=== PATIENT | female | born 1945 | race Asian ===

== ENCOUNTER → 2023-12-16 09:58 | Outpatient (REF) | payer MEDICARE, BC, SELFPAY ==
[2023-12-16 12:31] LABS: ALT (SGPT) 19 U/L (0-35); AST (SGOT) 24 U/L (14-36); Albumin 4.3 g/dl (3.5-5.0); Alkaline Phosphatase 65 U/L (38-126); Blood Urea Nitrogen 19 mg/dl (7-17); Calcium 10.4 mg/dl (8.4-10.2); Carbon Dioxide 28 mmol/L (22-30); Chloride 105 mmol/L (98-107); Glucose 92 mg/dl (70-99); Potassium 4.2 mmol/L (3.5-5.1); Sodium 134 mmol/L (135-145); Total Bilirubin 0.4 mg/dl (0.2-1.3); Total Protein 7.3 g/dl (6.3-8.2); eGFR > 60.00
[2023-12-18 12:16] LABS: Intact PTH 140.5 pg/ml (13.6-85.8)
== END ==
LOC: HWLAB 09:58
PROVIDERS: ATTENDING PHYSICIAN Nurse Practitioner
DX: I10 Essential (primary) hypertension (principal); E34.9 Endocrine disorder, unspecified; E03.9 Hypothyroidism, unspecified
CPT/HCPCS: 36415; 80053; 83970; 84443

== ENCOUNTER → 2024-02-22 10:32 | Outpatient (REF) | payer MEDICARE, BC, SELFPAY ==
[2024-02-22 15:56] LABS: Erythrocyte Sed Rate 10 mm/hour (0-20)
[2024-02-22 16:17] LABS: Intact PTH 80.6 pg/ml (13.6-85.8)
[2024-02-22 16:31] LABS: C-Reactive Protein < 5.00 mg/L (0.0-10.00)
[2024-02-24 14:32] LABS: Rheumatoid Agglutinin Less Than 10 IU (<10 IU)
[2024-02-24 18:47] LABS: ds-DNA Ab, IgG Reflex To Titer 2 IU (0-24)
[2024-02-25 01:38] LABS: CCP Antibody IgG/IgA 55 Units (0-19)
[2024-02-25 02:16] LABS: ANA, IgG Reflex to HEp-2 None Detected (None Detected)
== END ==
LOC: HWLAB 10:32
PROVIDERS: ATTENDING PHYSICIAN Nurse Practitioner; REFERRING PHYSICIAN Internal Medicine Endocrinology, Diabetes & Metabolism
DX: E34.9 Endocrine disorder, unspecified (principal)
CPT/HCPCS: 36415; 83970; 85652; 86038; 86140; 86200; 86225; 86235; 86430

== ENCOUNTER → 2024-03-21 12:03 | Outpatient (REF) | payer OTHER, SELFPAY | LOC: RAD 12:03 | PROVIDERS: ATTENDING PHYSICIAN Nurse Practitioner Family | DX: Z13.9 Encounter for screening, unspecified (principal) | CPT/HCPCS: 71046 ==

== ENCOUNTER → 2024-06-01 08:30 | Outpatient (REF) | payer MEDICARE, BC, SELFPAY ==
[2024-06-01 10:18] LABS: Ionized Calcium 1.41 mMOL/L (1.15-1.33)
[2024-06-01 11:48] LABS: ALT (SGPT) 15 U/L (0-35); AST (SGOT) 20 U/L (14-36); Albumin 4.2 g/dl (3.5-5.0); Alkaline Phosphatase 47 U/L (38-126); Blood Urea Nitrogen 26 mg/dl (7-17); Calcium 10.8 mg/dl (8.4-10.2); Carbon Dioxide 28 mmol/L (22-30); Chloride 100 mmol/L (98-107); Glucose 98 mg/dl (70-99); Potassium 4.9 mmol/L (3.5-5.1); Sodium 140 mmol/L (135-145); Total Bilirubin 0.4 mg/dl (0.2-1.3); Total Protein 6.8 g/dl (6.3-8.2); eGFR 46.91
[2024-06-01 12:00] LABS: Vitamin D, 25-OH*** 104 ng/mL (30-80)
[2024-06-01 12:14] LABS: TSH 1.83 uIU/ml (0.47-4.68)
[2024-06-03 11:24] LABS: Intact PTH 71.1 pg/ml (13.6-85.8)
== END ==
LOC: RAD 08:30
PROVIDERS: ATTENDING PHYSICIAN Internal Medicine Endocrinology, Diabetes & Metabolism; FAMILY PHYSICIAN Nurse Practitioner
DX: M81.0 Age-related osteoporosis without current pathological fracture (principal); E83.52 Hypercalcemia; E21.0 Primary hyperparathyroidism; E04.2 Nontoxic multinodular goiter; E55.9 Vitamin D deficiency, unspecified
CPT/HCPCS: 36415; 78071; 80053; 82306; 82330; 83970; 84443; A9500

== ENCOUNTER → 2024-07-04 09:47 | Outpatient (REF) | payer MEDICARE, BC, SELFPAY | LOC: HWLAB 09:47 | PROVIDERS: ATTENDING PHYSICIAN Internal Medicine Gastroenterology | DX: R19.7 Diarrhea, unspecified (principal) | CPT/HCPCS: 83993 ==

== ENCOUNTER → 2024-07-14 10:27 | Outpatient (REF) | payer MEDICARE, BC, SELFPAY ==
[2024-07-14 11:44] LABS: Ionized Calcium 1.44 mMOL/L (1.15-1.33)
[2024-07-14 11:57] LABS: % Basophils 0.9 % (0-2); % Eosinophils 5.2 % (0-6); % Immature Granulocytes 0.2 % (0-0.5); % Lymphocytes 27.3 % (20.5-51.1); % Monocytes 6.2 % (1.7-9.3); % Neutrophils 60.2 % (42.2-75.2); Absolute Basophils 0.1 10^3/uL (0-0.2); Absolute Eosinophils 0.3 10^3/uL (0-0.7); Absolute Lymphocytes 1.5 10^3/uL (1.2-3.4); Absolute Monocytes 0.3 10^3/uL (0.1-0.6); Absolute Neutrophils 3.2 10^3/uL (1.4-6.5); Hematocrit 42.9 % (37.0-47.0); Hemoglobin 14.6 g/dL (12.0-16.0); Mean Corpuscular Hgb 31.4 pg (27.0-31.0); Mean Corpuscular Volume 92.3 fL (81.0-99.0); Mean Platelet Volume 10.2 fL (7.4-10.4); Nucleated Red Blood Cells % 0 %; Platelet Count 221 10^3/uL (130-400); Red Blood Cell Count 4.65 10^6/uL (4.20-5.40); Red Cell Dist. Width 13.2 % (11.5-14.5); White Blood Cell Count 5.3 10^3/uL (4.8-10.8)
[2024-07-14 12:11] LABS: ALT (SGPT) 21 U/L (0-35); AST (SGOT) 27 U/L (14-36); Albumin 4.5 g/dl (3.5-5.0); Alkaline Phosphatase 52 U/L (38-126); Blood Urea Nitrogen 26 mg/dl (7-17); Calcium 11.5 mg/dl (8.4-10.2); Carbon Dioxide 27 mmol/L (22-30); Chloride 102 mmol/L (98-107); Glucose 95 mg/dl (70-99); HDL Cholesterol 69 mg/dl; LDL Cholesterol, Calculated 114 mg/dl; Potassium 4.4 mmol/L (3.5-5.1); Sodium 140 mmol/L (135-145); Total Bilirubin 0.4 mg/dl (0.2-1.3); Total Cholesterol 209 mg/dl (50-199); Total Protein 7.2 g/dl (6.3-8.2); Triglyceride 133 mg/dl (10-149); Very Low Density Lipoprotein 26 mg/dl (0-30); eGFR 42.62
[2024-07-14 13:06] LABS: Vitamin D, 25-OH*** 113 ng/mL (30-80)
== END ==
LOC: HWRAD 10:27
PROVIDERS: ATTENDING PHYSICIAN Physical Medicine & Rehabilitation; REFERRING PHYSICIAN Internal Medicine Endocrinology, Diabetes & Metabolism
DX: M81.0 Age-related osteoporosis without current pathological fracture (principal); E04.2 Nontoxic multinodular goiter; E21.0 Primary hyperparathyroidism; E55.9 Vitamin D deficiency, unspecified; M75.01 Adhesive capsulitis of right shoulder; I10 Essential (primary) hypertension
CPT/HCPCS: 36415; 73030; 77080; 80053; 80061; 82306; 82330; 83970; 85025

== ENCOUNTER → 2024-08-02 07:57 | Day surgery (SDC) | payer MEDICARE, BC, SELFPAY ==
[2024-08-02 09:14] LABS: APTT 29.5 Sec (23.4-35.0); INR 0.95; PT 13.1 Sec (11.4-14.6)
== END ==
LOC: SDSPAT 07:57
PROVIDERS: ATTENDING PHYSICIAN Surgery
DX: Z01.812 Encounter for preprocedural laboratory examination (principal)
CPT/HCPCS: 85610; 36415; 85730

== ENCOUNTER 2024-08-08 06:34 | Day surgery (SDC) | payer MEDICARE, BC, SELFPAY ==
--- NOTE | 2024-07-25 16:47 | PTCARENOTE ---
abnormal Creat 1.3, GFR 42.[address] Ascencio's office.
--- NOTE | 2024-07-26 14:50 | PTCARENOTE ---
Abn ECG, Dr. Quarles notified, no new actions required.
[2024-08-02 12:40] VITALS: BMI 25.4
[2024-08-08] VITALS (9 sets, daily range): BP systolic 129–161; BP diastolic 64–77; BMI 25.4
[2024-08-08] MEDS: TYLENOL 1000 MG PO (11:40)
[2024-08-08] MEDS: HEPARIN 5000 UNITS SC (11:41)
[2024-08-08] MEDS: NORMOSOL-R/PLASMALYTE-A 1000 IV (11:41)
[2024-08-08] MEDS: NEURONTIN 300 MG PO (11:41)
[2024-08-08 13:40] LABS: Turbo PTH 104.3 pg/ml (13.6-85.8)
[2024-08-08 14:56] LABS: Turbo PTH 114 pg/ml (13.6-85.8)
--- NOTE | 2024-08-08 15:14 | OR.RPT ---
Operative Report
Operative Report
Date of Operation: August 08, 2024
Preoperative Diagnosis: �Recurrent hyperparathyroidism - E210
Postoperative Diagnosis: Same
Surgeon: Rolando Ascencio M.D.
Operation: Neck re-exploration, resection of the right and left inferior parathyroidectomy - 13455
Anesthesia: GET
Estimated Blood Loss: 3 cc
Drains: None
Specimen: �right and left inferior neck nodules, rule out parathyroid adenomas
Complications: �None
Procedure:
The patient was taken to the operating room and placed in the usual supine position. After adequate general endotracheal anesthesia was established, the patient's neck was extended, prepped, and draped in the typical sterile fashion. The old skin
incision was reopened with the #15 blade, and this was taken through the skin into the subcutaneous tissue. The underlying platysma muscle was divided, and subplatysmal flaps were created superiorly to the thyroid cartilage and inferiorly to the
sternal notch. Strap muscles were identified and at the midline.
Attention was turned to the patient's right side of the neck. Significant scar tissue was noted, which was taken down cautious. The right thyroid lobe was mobilized medially. During this process, the right recurrent laryngeal nerve was identified
and preserved throughout the surgery. The right lower neck nodule was identified and noted to be enlarged, excised, and sent to the pathology department, which showed a hypercellular parathyroid gland.
The attention was turned to the left side of the neck. The left thyroid lobe was mobilized medially. During this process, the left recurrent laryngeal nerve was identified and preserved throughout the surgery. The left lower neck nodule was
identified and noted to be enlarged, excised, and sent to the pathology department, which showed a hypercellular parathyroid gland. The normal-appearing left superior parathyroid gland was identified and preserved.
After obtaining adequate hemostasis, the strap muscles were reapproximated with #3-0 Vicryl in a running fashion. The platysma muscle was reapproximated with #3-0 Vicryl in an interrupted fashion, and the skin was approximated with #4-0 Monocryl in
a running subcuticular fashion. The Steri-Strips and sterile dressings were placed. The patient tolerated the procedure well. The final instrument, needle, and sponge counts were correct. The patient was extubated and transferred to the PACU.
[2024-08-08] MEDS: SUBLIMAZE 25 MCG IV (15:15)
[2024-08-08 16:04] LABS: Turbo PTH 14.7 pg/ml (13.6-85.8)
== END 2024-08-08 17:49 | disposition home or self-care (01) ==
LOC: SDS 06:34
PROVIDERS: ATTENDING PHYSICIAN Surgery
DX: E21.0 Primary hyperparathyroidism (principal)
CPT/HCPCS: 60502; 88305; 88307; 88332; 83970; 88331; C1776

== ENCOUNTER → 2024-08-10 15:08 | Emergency (ER) | payer MEDICARE, BC, SELFPAY ==
[2024-08-10 15:11] VITALS: BP 135/88
[2024-08-10 15:35] LABS: % Basophils 0.5 % (0-2); % Eosinophils 2.1 % (0-6); % Immature Granulocytes 0.2 % (0-0.5); % Lymphocytes 23.4 % (20.5-51.1); % Monocytes 5.6 % (1.7-9.3); % Neutrophils 68.2 % (42.2-75.2); Absolute Eosinophils 0.2 10^3/uL (0-0.7); Absolute Monocytes 0.5 10^3/uL (0.1-0.6); Absolute Neutrophils 5.8 10^3/uL (1.4-6.5); Hematocrit 44.5 % (37.0-47.0); Hemoglobin 14.6 g/dL (12.0-16.0); Mean Corp Hgb Conc. 32.8 g/dL (33.0-37.0); Mean Corpuscular Hgb 30.8 pg (27.0-31.0); Mean Corpuscular Volume 93.9 fL (81.0-99.0); Mean Platelet Volume 9.9 fL (7.4-10.4); Nucleated Red Blood Cells % 0 %; Platelet Count 247 10^3/uL (130-400); Red Blood Cell Count 4.74 10^6/uL (4.20-5.40); Red Cell Dist. Width 12.8 % (11.5-14.5); White Blood Cell Count 8.5 10^3/uL (4.8-10.8)
[2024-08-10 15:46] VITALS: BP 111/73
[2024-08-10 15:51] LABS: ALT (SGPT) 17 U/L (0-35); AST (SGOT) 28 U/L (14-36); Albumin 4.3 g/dl (3.5-5.0); Alkaline Phosphatase 45 U/L (38-126); Blood Urea Nitrogen 22 mg/dl (7-17); Carbon Dioxide 27 mmol/L (22-30); Chloride 101 mmol/L (98-107); Glucose 145 mg/dl (70-99); Sodium 140 mmol/L (135-145); Total Bilirubin 0.6 mg/dl (0.2-1.3); Total Protein 7.2 g/dl (6.3-8.2); eGFR 52.08
[2024-08-10 15:59] LABS: Troponin I 0.015 ng/ml
[2024-08-10 16:00] VITALS: BP 101/66
[2024-08-10 16:06] LABS: Magnesium 1.4 mg/dl (1.6-2.3)
--- NOTE | 2024-08-10 16:24 | ED.GENMED ---
History of Present Illness
General
Chief Complaint: Chest Pain
Source: patient and records
Exam Limitations: none
Time Seen by Provider: 08/10/24 16:00
Nursing documentation reviewed up to this point in time: agreed with
History of Present Illness
History of Present Illness:
78-year-old female presents with palpitations onset earlier this morning some fluttering in her chest no chest pain or shortness of breath this correction from the nurses note, status post parathyroid removed [address] Ascencio, sees
Evelyn never had A-fib before, also seen Dr. Wheeler internet e commerce specialist no fever or chills no bleeding from the wound
Past History
Past History
ED Past Medical History: Hypothyroidism; Negative Arrthythmia
ED Past Surgical History: Other (Parathyroid surgery)
Social History
Tobacco: Non-smoker
Alcohol: None
Drug: None
Living: with family
Employment: Retired
Review of Systems
Review of Systems
All Other Systems: Not applicable
Constitutional: Reports no symptoms; Denies fever or fatigue
EENT: Reports no symptoms
Respiratory: Reports no symptoms
Cardiac: Reports palpitations
ABD/GI: Reports no symptoms
: Reports no symptoms
Neurological: Reports no symptoms
Endocrine: Reports no symptoms
Phy Exam
Physical Exam
Physical Exam:
Physical Exam
General: no apparent distress, not acutely ill
Neck: Surgical wound Steri-Strips intact no obvious bleeding no stridor normal voice
Heart: Irregular
Lungs: no acute respiratory distress. clear bilaterally
Neuro: alert and oriented. no focal neurological deficits
Skin: no rash
Psychiatric: well kept. interactive and cooperative
Extremities: no edema.
Scores
[id number] Score for Afib Stroke Risk
Age in Years (65=0, 65-74=1, >/=75=2): > or = 75
Sex (Female=+1): Female
Congestive Heart Failure History (Yes=+1): No
Hypertension History (Yes=+1): Yes
Stroke/TIA/Thromboembolism History (Yes=+2): No
Vascular Disease History (Yes=+1): No
Diabetes Mellitus (Yes=+1): No
Score: 4
Anticoagulation Recommendations: Recommend anticoagulation (as validated in nonvalvular fib)
Heart Score for Chest Pain Patients
STEMI patient?: No
History: Slightly or Non-Suspicious
ECG: Nonspecific Repolarization
Age: >/= 65 years
Risk Factors: 1 or 2 Risk Factors
Troponin: </= Normal Limit
Heart Score for Chest Pain Patients: 4
Heart Score Risk: 20.3% MACE over next 6 weeks
Course
Orders/Labs/Results
Orders:
Orders
08/10/24 15:09
EKG [Electrocardiogram (*1)] Urgent
Reason for Study: Chest Pain
EKG- Treatment ONCE
08/10/24 15:24
Complete Blood Count/With Diff Urgent
Comprehensive Metabolic Panel Urgent
Magnesium Urgent
Comment: ADD ON
TSH Reflex To Free T4 Urgent
Troponin I Urgent
08/10/24 15:48
Add On- LAB Urgent
Tests Added?: Magnesium, ionized calcium
08/10/24 16:19
Magnesium Sulfate 1 grams 0.9% Sodium Chloride 100 ml [Nss] 100 ml IV NOW
08/10/24 18:25
Apixaban [Eliquis] 5 mg PO NOW STA
Abnormal Lab Results
08/10/24
15:24
MCHC 32.8 L g/dL
(33.0-37.0)
BUN 22 H mg/dl
(7-17)
Creatinine 1.1 H mg/dL
(0.6-1.0)
Glucose 145 H mg/dl
(70-99)
Magnesium 1.4 L mg/dl
(1.6-2.3)
08/10/24 15:24
08/10/24 15:24
Vital Signs
Initial and Last Documented VS:
Initial Vital Signs
Temp Pulse Resp BP Pulse Ox
98.2 F 108 18 135/88 100
08/10/24 15:11 08/10/24 15:11 08/10/24 15:11 08/10/24 15:11 08/10/24 15:11
Last Documented Vital Signs
Temp Pulse Resp BP Pulse Ox
98.2 F 93 21 111/73 98
08/10/24 15:11 08/10/24 15:48 08/10/24 15:48 08/10/24 15:46 08/10/24 15:48
MDM/Problems Addressed
Differential Diagnosis Includes:
A-fib atrial tach palpitations PVCs
MDM/Problems Addressed:
Palpitation
Chronic conditions affecting care:
Thyroid hypertension hypothyroid
Acute Exacerbation and/or Progression of Chronic Illness:
Thyroid hypertension hypothyroid
*Critical Care Note
Total Time (30-74mins, 75-104mins- exclusive of procedures): 15
Update Note
Update Note:
Update patient is in a rate controlled A-fib labs are noted will replete her potassium message sent to her outpatient physicians
Reviewed with her outpatient health and safety director and surgeon okay to start anticoagulation will plan on a conservative treatment plan at this time, have her follow-up with an EKG next week ER if worsening symptoms
Update patient remains in A-fib controlled rate clearly instructed to return to the ER if worsening cardiac symptoms and/or bleeding
ED Attending Note
-
Portions of this chart may have been created with voice recognition software.� Occasional wrong word or��sound alike� substitutions may have occurred due to the inherent limitations of voice recognition software.
Discharge Plan
Departure
Patient Disposition: Home (Routine Discharge)
Date of Disposition: 08/10/24
Time of Disposition: 18:28
Patient with high blood pressure during this ER visit?: No
Condition: Good
Discharge Problem:
Atrial fibrillation, new onset
Instructions: Atrial fibrillation and atrial flutter - ED discharge instructions
Prescriptions:
New
Eliquis 5 mg tablet
5 mg PO BID Qty: 60 0RF
magnesium oxide 500 mg magnesium tablet
500 mg PO DAILY Qty: 10 0RF
No Action
ascorbic acid (vitamin C) [Vitamin C] 1,000 mg Tablet
1 g PO DAILY
levothyroxine [Synthroid] 50 mcg Tablet
50 mcg PO DAILY
Patient Comments:
50MCG
zinc acetate 50 mg (zinc) Capsule
50 mg PO DAILY
losartan 100 mg Tablet
100 mg PO DAILY
spironolactone 50 mg Tablet
50 mg PO QPM
diclofenac sodium [Arthritis Pain (diclofenac)] 1 % Gel
1 ea TOPICAL DAILYPRN PRN (Reason: back, knees, shoulders)
Patient Comments:
right shoulder
nebivolol [Bystolic] 10 mg Tablet
10 mg PO QPM
Prolia 60 mg/mL Syringe
60 mg SC [id number]
Rx Instructions:
Next dose due 08/15/2024
turmeric 400 mg Capsule
1,000 mg PO DAILY
aspirin 81 mg Tablet,Delayed Release (Dr/Ec)
81 mg PO DAILY
Metamucil 3.4 gram/5.4 gram Powder
2 tbsp PO BID
gabapentin 100 mg capsule
100 mg PO DAILY
gabapentin 100 mg capsule
300 mg PO QPM
ipratropium bromide 21 mcg (0.03 %) spray,non-aerosol
2 spray INTRANASAL BID
Referrals:
Archie Radford CRNP [Family Provider] -
Luari Rivas MD [Active] - Follow up in 5-7 days
Activity Restrictions/Additional Instructions:
Start Eliquis twice a day
Return to the ER for any bleeding any trauma swelling from your neck wound or any problems swallowing
Return to the ER for chest pain, shortness of breath you feel you are going to pass out fast or slow heart rates
Interventions
Interventions:
*Risk Screen - Suicide Last Done: 08/10/24 15:11
*General Assessment Last Done: 08/10/24 15:11
*Neglect/Abuse Screening Last Done: 08/10/24 15:11
*ED COVID-19 Vaccine History Last Done: 08/10/24 15:11
Discharge Date and Time
Print Language: ERITREAN
[2024-08-10 16:47] LABS: TSH Reflex To Free T4 0.48 uIU/ml (0.47-4.68)
[2024-08-10 17:00] VITALS: BP 101/61
[2024-08-10] MEDS: MAGNESIUM SULFATE 102 GRAMS IV (17:01)
[2024-08-10 18:00] VITALS: BP 115/71
[2024-08-10] MEDS: ELIQUIS 5 MG PO (18:55)
== END | disposition home or self-care (01) ==
LOC: EMR 15:08
PROVIDERS: Emergency Medicine; EMERGENCY PHYSICIAN Emergency Medicine
DX: I48.91 Unspecified atrial fibrillation (principal); E03.9 Hypothyroidism, unspecified; I10 Essential (primary) hypertension
CPT/HCPCS: 99283; 96365; 80053; 83735; 84443; 84484; 85025; 93005

== ENCOUNTER → 2024-08-18 13:33 | Outpatient (REF) | payer MEDICARE, BC, SELFPAY ==
[2024-08-18 16:32] LABS: ALT (SGPT) 17 U/L (0-35); AST (SGOT) 20 U/L (14-36); Albumin 4.2 g/dl (3.5-5.0); Alkaline Phosphatase 55 U/L (38-126); Blood Urea Nitrogen 34 mg/dl (7-17); Calcium 10.9 mg/dl (8.4-10.2); Carbon Dioxide 30 mmol/L (22-30); Chloride 100 mmol/L (98-107); Glucose 112 mg/dl (70-99); Potassium 4.1 mmol/L (3.5-5.1); Sodium 139 mmol/L (135-145); Total Bilirubin 0.4 mg/dl (0.2-1.3); Total Protein 6.8 g/dl (6.3-8.2); eGFR 38.99
[2024-08-19 09:57] LABS: Intact PTH < 3.4 pg/ml (13.6-85.8)
== END ==
LOC: HWLAB 13:33
PROVIDERS: ATTENDING PHYSICIAN Surgery
DX: E21.0 Primary hyperparathyroidism (principal)
CPT/HCPCS: 36415; 80053; 83970

== ENCOUNTER → 2024-08-22 10:00 | Outpatient (REF) | payer MEDICARE, BC, SELFPAY | LOC: HWRCS 10:00 | PROVIDERS: ATTENDING PHYSICIAN Student in an Organized Health Care Education/Training Program | DX: I48.91 Unspecified atrial fibrillation (principal) | CPT/HCPCS: 93306 ==

== ENCOUNTER → 2024-08-25 12:27 | Outpatient (REF) | payer MEDICARE, BC, SELFPAY ==
[2024-08-25 15:33] LABS: ALT (SGPT) 21 U/L (0-35); AST (SGOT) 25 U/L (14-36); Albumin 4.4 g/dl (3.5-5.0); Alkaline Phosphatase 48 U/L (38-126); Blood Urea Nitrogen 19 mg/dl (7-17); Carbon Dioxide 23 mmol/L (22-30); Chloride 99 mmol/L (98-107); Glucose 138 mg/dl (70-99); Potassium 4.1 mmol/L (3.5-5.1); Sodium 136 mmol/L (135-145); Total Bilirubin 0.4 mg/dl (0.2-1.3); Total Protein 7.3 g/dl (6.3-8.2); eGFR 42.35
[2024-08-26 09:33] LABS: Intact PTH 6.4 pg/ml (13.6-85.8)
== END ==
LOC: HWLAB 12:27
PROVIDERS: ATTENDING PHYSICIAN Surgery
DX: E21.0 Primary hyperparathyroidism (principal)
CPT/HCPCS: 36415; 80053; 83970

== ENCOUNTER → 2024-08-29 10:19 | Outpatient (REF) | payer MEDICARE, BC, SELFPAY | LOC: RCS 10:19 | PROVIDERS: ATTENDING PHYSICIAN Student in an Organized Health Care Education/Training Program | DX: I48.91 Unspecified atrial fibrillation (principal) | CPT/HCPCS: 93225; 93226 ==

== ENCOUNTER → 2024-09-01 13:39 | Outpatient (REF) | payer MEDICARE, BC, SELFPAY ==
[2024-09-01 17:14] LABS: ALT (SGPT) 33 U/L (0-35); AST (SGOT) 31 U/L (14-36); Albumin 4.3 g/dl (3.5-5.0); Alkaline Phosphatase 53 U/L (38-126); Blood Urea Nitrogen 21 mg/dl (7-17); Calcium 9.2 mg/dl (8.4-10.2); Carbon Dioxide 27 mmol/L (22-30); Chloride 98 mmol/L (98-107); Glucose 143 mg/dl (70-99); Potassium 4.4 mmol/L (3.5-5.1); Sodium 136 mmol/L (135-145); Total Bilirubin 0.4 mg/dl (0.2-1.3); Total Protein 7.2 g/dl (6.3-8.2); eGFR 42.35
[2024-09-01 17:26] LABS: Intact PTH 4.9 pg/ml (13.6-85.8)
== END ==
LOC: HWLAB 13:39
PROVIDERS: ATTENDING PHYSICIAN Surgery
DX: E21.0 Primary hyperparathyroidism (principal)
CPT/HCPCS: 36415; 80053; 83970

== ENCOUNTER → 2024-09-05 15:05 | Outpatient (REF) | payer MEDICARE, BC, SELFPAY | LOC: HWRAD 15:05 | PROVIDERS: ATTENDING PHYSICIAN Nurse Practitioner Family | DX: R05.9 Cough, unspecified (principal) | CPT/HCPCS: 71046 ==

== ENCOUNTER → 2024-09-20 13:29 | Outpatient (REF) | payer MEDICARE, BC, SELFPAY ==
[2024-09-20 16:26] LABS: ALT (SGPT) 13 U/L (0-35); AST (SGOT) 18 U/L (14-36); Alkaline Phosphatase 48 U/L (38-126); Blood Urea Nitrogen 26 mg/dl (7-17); Calcium 8.6 mg/dl (8.4-10.2); Carbon Dioxide 25 mmol/L (22-30); Chloride 100 mmol/L (98-107); Glucose 106 mg/dl (70-99); Potassium 4.3 mmol/L (3.5-5.1); Sodium 137 mmol/L (135-145); eGFR 46.62
[2024-09-20 16:36] LABS: Total Bilirubin 0.2 mg/dl (0.2-1.3)
[2024-09-23 09:49] LABS: Intact PTH 6.8 pg/ml (13.6-85.8)
== END ==
LOC: HWLAB 13:29
PROVIDERS: ATTENDING PHYSICIAN Surgery
DX: E21.0 Primary hyperparathyroidism (principal)
CPT/HCPCS: 36415; 80053; 83970

== ENCOUNTER → 2024-10-19 15:02 | Outpatient (REF) | payer MEDICARE, BC, SELFPAY ==
[2024-10-19 16:03] LABS: % Basophils 1.1 % (0-2); % Eosinophils 4.8 % (0-6); % Immature Granulocytes 0.7 % (0-0.5); % Lymphocytes 24.6 % (20.5-51.1); % Monocytes 7.8 % (1.7-9.3); Absolute Basophils 0.1 10^3/uL (0-0.2); Absolute Eosinophils 0.2 10^3/uL (0-0.7); Absolute Lymphocytes 1.1 10^3/uL (1.2-3.4); Absolute Monocytes 0.4 10^3/uL (0.1-0.6); Absolute Neutrophils 2.8 10^3/uL (1.4-6.5); Hematocrit 40.7 % (37.0-47.0); Hemoglobin 13.4 g/dL (12.0-16.0); Mean Corp Hgb Conc. 32.9 g/dL (33.0-37.0); Mean Corpuscular Hgb 30.5 pg (27.0-31.0); Mean Corpuscular Volume 92.7 fL (81.0-99.0); Mean Platelet Volume 9.6 fL (7.4-10.4); Nucleated Red Blood Cells % 0 %; Platelet Count 269 10^3/uL (130-400); Red Blood Cell Count 4.39 10^6/uL (4.20-5.40); Red Cell Dist. Width 13.2 % (11.5-14.5); White Blood Cell Count 4.6 10^3/uL (4.8-10.8)
[2024-10-19 16:17] LABS: ALT (SGPT) 15 U/L (0-35); AST (SGOT) 20 U/L (14-36); Albumin 4.5 g/dl (3.5-5.0); Alkaline Phosphatase 49 U/L (38-126); Blood Urea Nitrogen 21 mg/dl (7-17); Calcium 9.4 mg/dl (8.4-10.2); Carbon Dioxide 29 mmol/L (22-30); Chloride 96 mmol/L (98-107); Glucose 114 mg/dl (70-99); Potassium 4.3 mmol/L (3.5-5.1); Sodium 133 mmol/L (135-145); Total Bilirubin 0.7 mg/dl (0.2-1.3); eGFR 51.75
[2024-10-19 16:48] LABS: TSH Reflex To Free T4 2.19 uIU/ml (0.47-4.68)
[2024-10-21 09:36] LABS: Intact PTH 7.5 pg/ml (13.6-85.8)
== END ==
LOC: PAVMRI 15:02
PROVIDERS: ATTENDING PHYSICIAN Physical Medicine & Rehabilitation
DX: I10 Essential (primary) hypertension (principal); E03.9 Hypothyroidism, unspecified; E83.52 Hypercalcemia; E34.9 Endocrine disorder, unspecified; N18.31 Chronic kidney disease, stage 3a
CPT/HCPCS: 36415; 72141; 80053; 83970; 84443; 85025

== ENCOUNTER → 2024-12-18 07:42 | Outpatient (REF) | payer MEDICARE, BC, SELFPAY ==
[2024-12-18 08:15] LABS: Ionized Calcium 1.08 mMOL/L (1.15-1.33)
[2024-12-18 08:30] LABS: % Basophils 1.3 % (0-2); % Eosinophils 8.2 % (0-6); % Immature Granulocytes 0.2 % (0-0.5); % Lymphocytes 28.4 % (20.5-51.1); % Monocytes 7.8 % (1.7-9.3); % Neutrophils 54.1 % (42.2-75.2); Absolute Basophils 0.1 10^3/uL (0-0.2); Absolute Eosinophils 0.4 10^3/uL (0-0.7); Absolute Lymphocytes 1.3 10^3/uL (1.2-3.4); Absolute Monocytes 0.4 10^3/uL (0.1-0.6); Absolute Neutrophils 2.5 10^3/uL (1.4-6.5); Hemoglobin 13.4 g/dL (12.0-16.0); Mean Corp Hgb Conc. 33.5 g/dL (33.0-37.0); Mean Corpuscular Hgb 31.2 pg (27.0-31.0); Mean Corpuscular Volume 93.2 fL (81.0-99.0); Mean Platelet Volume 9.6 fL (7.4-10.4); Nucleated Red Blood Cells % 0 %; Platelet Count 259 10^3/uL (130-400); Red Blood Cell Count 4.29 10^6/uL (4.20-5.40); Red Cell Dist. Width 13.7 % (11.5-14.5); White Blood Cell Count 4.6 10^3/uL (4.8-10.8)
[2024-12-18 09:02] LABS: ALT (SGPT) 16 U/L (0-35); AST (SGOT) 19 U/L (14-36); Albumin 3.8 g/dl (3.5-5.0); Alkaline Phosphatase 46 U/L (38-126); Blood Urea Nitrogen 21 mg/dl (7-17); Calcium 8.8 mg/dl (8.4-10.2); Carbon Dioxide 31 mmol/L (22-30); Chloride 107 mmol/L (98-107); Glucose 87 mg/dl (70-99); Magnesium 1.6 mg/dl (1.6-2.3); Potassium 4.3 mmol/L (3.5-5.1); Sodium 144 mmol/L (135-145); Total Bilirubin 0.5 mg/dl (0.2-1.3); Total Protein 6.4 g/dl (6.3-8.2); eGFR 58.02
[2024-12-18 09:37] LABS: Glycohemoglobin (HgbA1c) 5.4 % (4.0-5.6)
[2024-12-19 10:59] LABS: Intact PTH 14.9 pg/ml (13.6-85.8)
== END ==
LOC: REG 07:42
PROVIDERS: OTHER PHYSICIAN Internal Medicine Endocrinology, Diabetes & Metabolism
DX: N18.31 Chronic kidney disease, stage 3a (principal); E87.1 Hypo-osmolality and hyponatremia; E89.2 Postprocedural hypoparathyroidism; D72.819 Decreased white blood cell count, unspecified; R73.09 Other abnormal glucose; R79.0 Abnormal level of blood mineral
CPT/HCPCS: 36415; 80053; 82330; 83036; 83735; 83970; 85025

== ENCOUNTER → 2025-01-05 07:51 | Outpatient (REF) | payer MEDICARE, BC, SELFPAY | LOC: RAD 07:51 | PROVIDERS: ATTENDING PHYSICIAN Physical Medicine & Rehabilitation | DX: I73.9 Peripheral vascular disease, unspecified (principal) | CPT/HCPCS: 93925 ==

== ENCOUNTER → 2025-02-24 08:12 | Outpatient (REF) | payer MEDICARE, BC, SELFPAY | LOC: MRI 3T 08:12 | PROVIDERS: ATTENDING PHYSICIAN Physical Medicine & Rehabilitation | DX: D33.0 Benign neoplasm of brain, supratentorial (principal) | CPT/HCPCS: 70551 ==

== ENCOUNTER → 2025-05-16 10:40 | Outpatient (REF) | payer MEDICARE, BC, SELFPAY ==
[2025-05-16 12:13] LABS: Hematocrit 40.2 % (37.0-47.0); Hemoglobin 13.7 g/dL (12.0-16.0); Mean Corp Hgb Conc. 34.1 g/dL (33.0-37.0); Mean Corpuscular Volume 89.7 fL (81.0-99.0); Platelet Count 239 10^3/uL (130-400); Red Cell Dist. Width 13.3 % (11.5-14.5)
[2025-05-16 13:17] LABS: Albumin 4.2 g/dl (3.5-5.0); Blood Urea Nitrogen 16 mg/dl (7-17); Calcium 9.1 mg/dl (8.4-10.2); Carbon Dioxide 28 mmol/L (22-30); Chloride 102 mmol/L (98-107); Glucose 81 mg/dl (70-99); Potassium 4.3 mmol/L (3.5-5.1); Sodium 135 mmol/L (135-145); eGFR > 60.00
== END ==
LOC: HWLAB 10:40
PROVIDERS: ATTENDING PHYSICIAN Specialist
DX: I10 Essential (primary) hypertension (principal)
CPT/HCPCS: 36415; 80069; 82330; 83970; 85027

== ENCOUNTER 2025-07-05 22:21 | Inpatient (IN) | payer MEDICARE, BC, SELFPAY ==
[2025-07-05] VITALS (14 sets, daily range): BP systolic 65–110; BP diastolic 34–83; BMI 26.6
[2025-07-05 18:16] LABS: Hematocrit 42.8 % (37.0-47.0); Hemoglobin 14.6 g/dL (12.0-16.0); Mean Corp Hgb Conc. 34.1 g/dL (33.0-37.0); Mean Corpuscular Volume 91.6 fL (81.0-99.0); Platelet Count 187 10^3/uL (130-400); Red Cell Dist. Width 12.9 % (11.5-14.5)
[2025-07-05 18:37] LABS: ALT (SGPT) 46 U/L (0-35); AST (SGOT) 46 U/L (14-36); Albumin 4.1 g/dl (3.5-5.0); Alkaline Phosphatase 85 U/L (38-126); Blood Urea Nitrogen 32 mg/dl (7-17); Calcium 9.2 mg/dl (8.4-10.2); Carbon Dioxide 28 mmol/L (22-30); Chloride 94 mmol/L (98-107); Glucose 103 mg/dl (70-99); Potassium 4.1 mmol/L (3.5-5.1); Sodium 130 mmol/L (135-145); Total Protein 7.3 g/dl (6.3-8.2); eGFR 33.01
[2025-07-05 18:42] LABS: Urine Character Cloudy (Clear)
[2025-07-05 19:15] LABS: Urine Squamous Cell >30 /LPF (Few)
[2025-07-05 19:16] LABS: Urine White Cell >100 /HPF (0-5)
[2025-07-05 19:18] LABS: Absolute Neutrophils -Man Diff 2.8 10^3/uL (1.4-6.5)
[2025-07-05 19:19] LABS: Platelets Checked Yes
[2025-07-05 19:21] LABS: Normal RBC Morphology Yes; Total Cells Counted 100
--- NOTE | 2025-07-05 19:25 | ED.GENMED ---
History of Present Illness
General
Chief Complaint: Flank Pain
Source: patient
Time Seen by Provider: 07/05/25 19:02
History of Present Illness
History of Present Illness:
79-year-old female presents to the emergency room complaining of right flank pain, rigors. Patient began feeling unwell about 3 days ago. She developed some mild flank pain as well as chills. She denied any dysuria or frequency. She went to her
family doctor who sent a urinalysis. Apparently urinalysis was positive and she was started on Cipro. She was told by her primary care provider to come to the emergency room should she have any more episodes. Patient has also been experiencing
some nausea. She do not measure her temperature at home. She denies any sore throat, headache, cough or shortness of breath.
Past History
Past History
ED Past Medical History: Hypothyroidism; Negative Arrthythmia
ED Past Surgical History: Other (Parathyroid surgery)
Social History
Tobacco: Non-smoker
Alcohol: None
Drug: None
Living: with family
Employment: Retired
Phy Exam
Physical Exam
Physical Exam:
General: Awake, Alert, Oriented X3. No acute distress.
Vitals: Febrile, mildly tachycardic
Head: Atraumatic
Eyes: Pupils equal, EOMI
Throat: Airway intact, no exudates
Neck: Trachea midline
Lungs: Clear and equal b/l
Heart: Regular rate, no murmurs
Abd: Soft, Nontender, No pulsatile mass
Back: Right CVA tenderness percussion
Neuro: Nonfocal
Skin: Warm, dry, area of erythema noted right flank. Patient indicates she used a hot compress there
Extremities: pulses equal b/l, no edema
Course
Orders/Labs/Results
Orders:
Orders
07/05/25 18:04
Complete Blood Count/With Diff Urgent
Comprehensive Metabolic Panel Urgent
Lactate Level [Lactic Acid] Urgent
Manual Differential Urgent
Blood Culture Urgent
DOREEN Source: Blood/Venous
Specimen Description:
07/05/25 18:23
Urinalysis Reflex To Culture Urgent
Date Specimen was Collected: 07/05/25
Time Specimen was Collected: 17:51
Urine Microscopic Reflex Cult Urgent
Urine Culture Urgent
DOREEN Source: U
Specimen Description:
Date Specimen was Collected: 07/05/25
Time Specimen was Collected: 17:51
07/05/25 19:21
CT Abd/pel Without Iv Or Oral Urgent
Comment:
Reason For Exam: rigth flank pain
Acetaminophen [Tylenol] 650 mg PO NOW STA
CefTRIAXone [Rocephin] 1,000 mg IV NOW STA
07/05/25 19:22
Lactated Ringers [Lr] 1,000 ml IV BOLUS
07/05/25 19:24
Sterile Water [Sterile Water For Injection] 10 ml .ROUTE .[facility]
07/05/25 21:16
Cefepime HCl [Maxipime] 2,000 mg IV NOW STA
07/05/25 21:17
Lactated Ringers [Lr] 1,000 ml IV BOLUS
07/05/25 21:44
NORepinephrine 4 MG/250 ML [Levophed] 4 mg in 250 ml IV NOW
Initial dose in mcg/min, then titrate:: 2
Titrate to keep:: MAP > 65 mmHg
Titrate by mcg/min:: 1-2 mcg/min
Frequency of titrations (minutes):: 5
Maximum dose in ICU in mcg/min:: 30
Maximum dose in IMU in mcg/min:: 8
Maximum dose in IVU in mcg/min:: 4
Begin to taper infusion when:: Remained at goal for 4hrs
Taper by mcg/min:: 1-2 mcg/min
Frequency of taper (minutes) if patient maintains goal:: 30
Taper to off?: Yes
If infusion off & no longer maintaining goal:: Contact Provider
07/05/25 21:49
Carboxymethylcellulose [Refresh Celluvisc Gel] 6 drops .ROUTE .[facility]
Dexamethasone Sod Phosphate [Decadron] 20 mg .ROUTE .[facility]
Lidocaine HCl/Pf [Xylocaine-Mpf 1% Vial] 50 mg .ROUTE .[facility]
Ondansetron Injectable [Zofran] 4 mg .ROUTE .[facility]
Phenylephrine HCl/0.9% NaCl [Vargas-Synephrine] 1,000 mcg .ROUTE .[facility]
Propofol [Diprivan] 20 ml .ROUTE .[facility]
Rocuronium Sloan [Rocuronium] 50 mg .ROUTE .[facility]
Succinylcholine Chloride [Succinylcholine] 200 mg .ROUTE .[facility]
07/05/25 21:51
Fentanyl Citrate/Pf [Sublimaze] 100 mcg .ROUTE .[facility]
07/05/25 21:52
ePHEDrine SULFATE [Emerphed] 50 mg .ROUTE .[facility]
07/05/25 21:53
Admit/Transfer Patient As Directed
Co-Sign Provider:
Level of Care: Inpatient admission
Assign to:: ICU
Physician / Group: Jeff
Diagnosis: Sepsis with hypotension and KARON secondary to pyelonephritis
Reason for Hospitalization: sepsis
Expected length of stay greater than two midnights?: Yes
ELOS- Estimated Length of Stay in days: 2
I certify the patient meets the requirements for IP care: Yes
PRN Pain Medication Management As Directed
May give lesser potent ordered pain med per pt: Yes
preference::
Protocol:: Medication orders for pain may be administered in a
manner that supports deferring to patient preference
when the pt is:
- Requesting an ordered lesser potent pain medication.
Least to most potent pain medications are defined
as: acetaminophen < NSAID < tramadol < opioids
(morphine, oxycodone, hydromorphone).
- Requesting a lesser dose of the same medication IF
ORDERED.
- Requesting a less intrusive route of administration
if both routes are prescribed by the provider (PO <
IV).
07/05/25 21:54
Code Status As Directed
Resuscitation Status: Full Code
Abnormal Lab Results
07/05/25 07/05/25
18:04 18:23
WBC 3.2 L 10^3/uL
(4.8-10.8)
MCH 31.3 H pg
(27.0-31.0)
Band Neutrophils 14 H %
(0-3)
Lymphocytes (Manual) 8 L %
(20-51)
Sodium 130 L mmol/L
(135-145)
Chloride 94 L mmol/L
(98-107)
BUN 32 H mg/dl
(7-17)
Creatinine 1.6 H mg/dL
(0.6-1.0)
Glucose 103 H mg/dl
(70-99)
Lactic Acid 2.2 H mmol/L
(0.7-2.0)
AST 46 H U/L
(14-36)
ALT 46 H U/L
(0-35)
Ur Occult Blood Reflex 4+ A
(Negative)
Leukocyte Esterase Rfl 3+ A
(Negative)
Urine RBC 7-10 A /HPF
(0-2)
Urine WBC (Reflex) >100 A /HPF
(0-5)
Urine Bacteria (Reflex) Many A
(Negative)
Urine Albumin (Reflex) 3+ A
(Neg - Trace)
07/05/25 18:04
07/05/25 18:04
Vital Signs
Initial and Last Documented VS:
Initial Vital Signs
Temp Pulse Resp BP Pulse Ox
100.3 F 103 20 107/58 95
07/05/25 17:53 07/05/25 17:53 07/05/25 17:53 07/05/25 17:53 07/05/25 17:53
Last Documented Vital Signs
Temp Pulse Resp BP Pulse Ox
98.9 F 84 22 90/50 95
07/05/25 22:01 07/05/25 22:00 07/05/25 22:00 07/05/25 22:00 07/05/25 22:00
MDM/Problems Addressed
Differential Diagnosis Includes:
Pyelonephritis, kidney stone, infected stone, herpes zoster
MDM/Problems Addressed:
Patient presents complaining of chills, rigors and right flank pain. She had an abnormal urinalysis at her doctor's office earlier today. Upon initial arrival the patient was hemodynamically stable with a low-grade fever. Her labs show a mildly
low white count at 3.2. She does have a left shift. Chemistries show mildly elevated BUN and creatinine. These are a bit higher than her baseline creatinine is 0.9. Lactate is 2.2. Urinalysis is highly consistent with a urinary tract infection
with a white blood cell count of greater than 100 per high-power field. Leukocyte esterase is strongly positive. Given her significant right flank pain a CT was obtained which shows a partially obstructing stone in the distal right ureter. During
her time in the emergency room the patient's blood pressure dropped to an extent. Her maps were trending a bit lower than 65. She was initially given ceftriaxone for UTI but now that she is seen to be reaching severe sepsis or septic shock
cefepime was added. Sepsis fluid bolus was ordered. Levophed was ordered. Discussed the patient's presentation with Dr. Dubose who is on-call for urology. He will make arrangements for the patient to go to the operating room for stent. I
asked the hospitalist to admit the patient to the ICU.
*Radiology
Radiology exam reviewed: radiology read reviewed
*Pulse Oximetry
SaO2: 95
Oxygen Mode of Delivery: Room air
Patient hypoxic: no
*Critical Care Note
Total Time (30-74mins, 75-104mins- exclusive of procedures): 44 min
comment:
Critical care statement: A total of 44 minutes of critical care time was provided for this patient. This includes management of unstable vital signs, evaluation of the patient at bedside, reviewing the patient's pertinent medical records, discussion
with consultants, review of old EKGs and review of pertinent medical records. This time with separate from time utilized to perform the aforementioned documented procedures
Data Reviewed
Review of Other/Old Records Reveals: Labs (April 2025)
ED Attending Note
-
Portions of this chart may have been created with voice recognition software.� Occasional wrong word or��sound alike� substitutions may have occurred due to the inherent limitations of voice recognition software.
Discharge Plan
Departure
Patient Disposition: Admit
Date of Disposition: 07/05/25
Time of Disposition: 21:32
Admit to: ICU
Presentation/result/management discussed w/ accepting MD/DO: Hospitalist
Condition: Serious
Discharge Problem:
Sepsis, Acute pyelonephritis, Right ureteral stone
Interventions
Interventions:
*Risk Screen - Suicide Last Done: 07/05/25 17:48
*General Assessment Last Done: 07/05/25 17:48
*Neglect/Abuse Screening Last Done: 07/05/25 17:48
*ED- Fall Risk Assessment Last Done: 07/05/25 19:19
*ED COVID-19 Vaccine History Last Done: 07/05/25 19:19
*ED Influenza Vaccine History Last Done: 07/05/25 19:19
ID-Pugdjq-Myvbbnreih Assessment Last Done: 07/05/25 19:15
ED-Female Genitourinary Assessment Last Done: 07/05/25 19:19
[2025-07-05] MEDS: ROCEPHIN 1000 MG IV (19:32)
[2025-07-05] MEDS: LR 1000 IV ×2 (19:32→21:41)
[2025-07-05] MEDS: TYLENOL 650 MG PO (19:32)
--- NOTE | 2025-07-05 21:40 | HPS.HSE ---
Family Physician
-
Family Physician: DESTINY Gregg
Chief Complaint
-
Flank pain
History of Present Illness
This is a 79-year-old female with past medical history significant for hypertension, hyperlipidemia, hypothyroid presenting to the emergency department with flank pain.
Patient reported symptoms began about 3 days ago. She reported chills and then severe right-sided flank pain. She denied having urinary symptoms. The chills and flank pain resolved but the following day she did record again with severe chills and
then right-sided flank pain. She saw her PMD and was started on ciprofloxacin which she took a dose today. However despite taking the Cipro she had recurrent chills and right-sided flank pain again. She denies any dysuria, hematuria urgency or
frequency. She denies nausea or vomiting or diarrhea.
She follows with nephrology for uncontrolled hypertension and on multiple antihypertensives. She denies any history of nephrolithiasis. She denies any history of recurrent urinary tract infections.
In the emergency department patient was hypotensive with a blood pressure 187/51, pulse of 87 and satting 97% on room air. Temperature was 99. She had UA which is markedly positive. CBC shows 3.2 WBCs but 14% bands normal hemoglobin and
platelets. Electrolytes are notable for a sodium of 130 but otherwise notable for a BUN and creatinine of 32 and 1.6. Lactic acid was 2.2.
CT of the abdomen pelvis showing SEVERE ACUTE RIGHT PYELONEPHRITIS. 2.5 mm partially obstructing calculus in the distal right ureter. SEVERE ACUTE CYSTITIS.
Medical History
Past Medical History
Past Medical History: Reports HTN, Hypothyroidism and Other (History of rectocele)
Past Surgical History: Reports Gynocological (Total abdominal hysterectomy )
Social History
Tobacco: Non-smoker
Alcohol: Occasional
Drug: None
Personal:
Living: With Family
Family History
Family History: Not pertinent
Allergies / Home Medications
Allergies reflects when Allergies were last updated in [facility].
Home Medications with original date entered in [facility]
Allergy/Medication List:
Allergies
Allergy/AdvReac Type Severity Reaction Status Date / Time
meperidine (From Demerol) Allergy Nausea / Verified 07/05/25 21:28
Vomiting
morphine Allergy Nausea / Verified 07/05/25 21:28
Vomiting
warfarin (From Coumadin) Allergy Hives Verified 07/05/25 21:28
Home Medications
ascorbic acid (vitamin C) 1,000 mg tablet (Vitamin C) 1 g PO DAILY Supplement 08/15/08
levothyroxine 50 mcg tablet (Synthroid) 50 mcg PO DAILY Thyroid 08/15/08
denosumab 60 mg/mL subcutaneous syringe (Prolia) 60 mg SC [id number] OSTEOPOROSIS 05/25/22
diclofenac sodium 1 % topical gel (Arthritis Pain (diclofenac)) 1 ea topical DAILYPRN PRN back, knees, shoulders 05/25/22
losartan 100 mg tablet 100 mg PO DAILY Blood Pressure 05/25/22
nebivolol 10 mg tablet (Bystolic) 10 mg PO QPM Blood Pressure 05/25/22
spironolactone 50 mg tablet 50 mg PO QPM Blood Pressure 05/25/22
zinc acetate 50 mg (zinc) capsule 50 mg PO DAILY Supplement 05/25/22
turmeric 400 mg capsule 1,000 mg PO DAILY Supplement 05/26/22
aspirin 81 mg tablet,delayed release 81 mg PO DAILY Blood Clot Prevention/Tx 08/07/24
psyllium husk 3.4 gram/5.4 gram oral powder (Metamucil) 2 tbsp PO BID Constipation 08/07/24
gabapentin 100 mg capsule 100 mg PO DAILY Pain 08/10/24
gabapentin 100 mg capsule 300 mg PO QPM Pain 08/10/24
ipratropium bromide 21 mcg (0.03 %) nasal spray 2 spray intranasal BID Allergies 08/10/24
magnesium oxide 500 mg PO DAILY #10 tabs 08/10/24
vitamin B complex 1 tab PO DAILY 07/05/25
Review of Systems
-
Constitutional: Reports No Symptoms
EENT: Reports No Symptoms
Respiratory: Reports No Symptoms
Cardiac: Reports No Symptoms
Abdomen/GI: Reports No Symptoms
: Reports No Symptoms
Musculoskeletal: Reports No Symptoms
Skin: Reports No Symptoms
Neurological: Reports No Symptoms
Endocrine: Reports No Symptoms
Hematologic/Lymphatic: Reports No Symptoms
Psych: Reports No Symptoms
Physical Exam
Vital Signs
Vital Signs
Temp Pulse Resp BP Pulse Ox
99.4 F 82 19 87/51 94
07/05/25 19:38 07/05/25 21:00 07/05/25 21:00 07/05/25 21:00 07/05/25 21:00
Physical Exam
General: Well Developed, Well Nourished and No Apparent Distress
HEENT: NormoCephalic, Moist mucous membranes and Atraumatic
Respiratory: Clear
Cardiac: S1/S2 and Regular Rhythm; No Murmur or Rub
GI: Soft, Non Tender, Non Distended and Normal Bowel Sounds; No Organomegaly
Rectal: Deferred by Provider
Musculoskeletal: No Clubbing, No Cyanosis and No Edema
Skin: No Rash
Neuro: AO x 3 and Nonfocal/grossly intact
Laboratory Results
-
07/05/25 18:04
07/05/25 18:04
Laboratory Results
Lactic Acid 2.2 mmol/L (0.7-2.0) H 07/05/25 18:04
Total Bilirubin 0.9 mg/dl (0.2-1.3) 07/05/25 18:04
AST 46 U/L (14-36) H 07/05/25 18:04
ALT 46 U/L (0-35) H 07/05/25 18:04
Alkaline Phosphatase 85 U/L (38-126) 07/05/25 18:04
Data Reviewed
-
CT Scan: Report Reviewed by me
Lab Data: Labs Reviewed by me
Old Records: Reviewed
Impression/Plan
-
IMPRESSION:
79-year-old complicated urinary tract infection with obstructing stone.
PLAN:
Sepsis with KARON and hypotension secondary to pyelonephritis complicated by right-sided partially obstructing stone in the distal ureter.
- admit to icu as map < 60 despite crystalloids
- s/p 2 L LR, continue w/ LR at 125 ml/hr for now
- blood and urine culturs sent
- IV cefepime
- urology consulted for emergent stone management
- hyolding all her antihypertensives for now
- started levophed to keep map > 65
- am cortisol
- ID consult
- Tick Inspector
KARON - Suspect 2/2 sepsis
- holding arb and antihypertensives
- iv fluids
- follow i/o
- keep map > 65
- continue aspirin and synthroid
DVT PPX - heparin sq
Code status - Full Code
[2025-07-05] MEDS: MAXIPIME 2000 MG IV (21:41)
[2025-07-05] MEDS: LEVOPHED 250 IV (21:51)
--- NOTE | 2025-07-05 22:21 | W.PN.URO.CBU ---
Today's Communication / Plan
-
for stent
Assessment / Plan
-
rt ureteral stone with hypotession fevrb chills despite po cipro reviewd cat scan films conseted with decisionfor surgery place stent
Diagnosis
-
Date of Service: July 05, 2025
-
Patient Diagnosis:uro sepsois hypotension due to 3mm distal rt uretral stone
Post Op Day:
Subjective
-
rt colic fevr chills
Objective
-
Vital Signs
Temp Pulse Resp BP Pulse Ox
98.9 F 84 22 90/50 95
07/05/25 22:01 07/05/25 22:00 07/05/25 22:00 07/05/25 22:00 07/05/25 22:00
Laboratory Results
07/05/25 18:04
07/05/25 18:04
Review of Systems
-
Constitutional: Fever, Fatigue and Night Sweats
: Flank Pain
Physical Exam
-
General - well developed, well nourished,toxic
Chest - clear bilaterally
Abdomen - soft, non-tender, positive bowel sounds, no CVAT, no incisional pain or distention
Genitalia - normal
Rectal - normal
Skin - warm & dry with no rash
Neuro - AOx3, no motor deficits
Extremities - no clubbing, no cyanosis, no edema
Incision - clean, dry
Dressing - clean, dry, intact
Care Review
Data Reviewed
Discussed with: Hospitalist, Nursing and Family
CT Scan: Image Pers Reviewed
--- NOTE | 2025-07-05 23:02 | W.SUR.POST ---
Surgical Immediate Post Op
Note
Pre Op Diagnosis: urosepsis from obstructing rt ureteral stone
Post Op Diagnosis:same
Procedure Performedcysto rt uretral stone manipulation rt jj stent
Primary Surgeon:buck
Secondary Surgeons:
Anesthesia: general dr ackerman
Estimated Blood Loss:1
Fluids: nss
Drains/Shunts:6 fr 24 cm jj stent 16 fr noguera
Specimens/Cultures: 0
Doppler/Duplex/Angio (Y/N):
Complications:
0
Operative Findings: lg amount pyuria draine once stnet passed stone
[2025-07-06] VITALS (43 sets, daily range): BP systolic 96–145; BP diastolic 54–93; BMI 27.3
[2025-07-06] MEDS: LR 1000 IV (00:09)
[2025-07-06 00:14] LABS: Glucose - Point of Care 116 mg/dl (70-99)
[2025-07-06] MEDS: HEPARIN 5000 UNITS SC ×4 (00:24→23:19)
[2025-07-06] MEDS: TYLENOL 650 MG PO (00:25)
[2025-07-06 04:41] LABS: Hematocrit 37.4 % (37.0-47.0); Hemoglobin 12.5 g/dL (12.0-16.0); Mean Corp Hgb Conc. 33.4 g/dL (33.0-37.0); Mean Corpuscular Volume 92.8 fL (81.0-99.0); Platelet Count 159 10^3/uL (130-400); Red Cell Dist. Width 12.8 % (11.5-14.5)
[2025-07-06 04:55] LABS: Blood Urea Nitrogen 25 mg/dl (7-17); Calcium 7.9 mg/dl (8.4-10.2); Carbon Dioxide 25 mmol/L (22-30); Chloride 100 mmol/L (98-107); Estimated Creatinine Clearance 37 ml/min; Glucose 164 mg/dl (70-99); Magnesium 1.5 mg/dl (1.6-2.3); Potassium 4.5 mmol/L (3.5-5.1); Sodium 132 mmol/L (135-145); eGFR 46.62
[2025-07-06] MEDS: CALCIUM GLUCONATE 100 IV (05:31)
[2025-07-06] MEDS: MAGNESIUM SULFATE 50 IV (05:31)
[2025-07-06] MEDS: SYNTHROID 50 MCG PO (05:31)
--- NOTE | 2025-07-06 07:35 | CON.INTV ---
Consultation
Consultation Request
Date/Time Consultation Requested: 07/06/2025-7 AM
Date/Time Consultation Performed: 07/06/2025-7:30 AM
Requesting Provider: Hospitalist
Performing Provider: Dr. Clark
Reason for Consultation: Sepsis/critical care management
Medical History
-
Chief Complaint: Sepsis
History of Present Illness:
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
2.5 mm partial obstructing calculus in the distal right ureter and underwent right ureteral stone manipulation right JJ stent placement and supervising floorperson consulted for urosepsis/critical care management 07/06/2025. She feels much improved after the
procedure. Norepinephrine was slowly weaned. She denies any shortness of breath, chest pain, chest tightness, productive cough, abdominal pain, nausea, flank pain, lower extremity swelling or focal weakness.
Past Medical History
Past Medical History: None (Hypertension. Hyperlipidemia. Hypothyroid. Rectocele repair. Total abdominal hysterectomy.)
Social History
Tobacco: Non-smoker
Alcohol: Occasional
Drug: None
Personal:
Living: With Family
Occupational Exposures: No known asbestos exposure
Environmental Exposures: No known tuberculosis exposure
Family History
Family History: Reviewed & Not Pertinent
Allergies / Home Medications
Allergies
Allergy/AdvReac Type Severity Reaction Status Date / Time
meperidine (From Demerol) Allergy Nausea / Verified 07/05/25 21:28
Vomiting
morphine Allergy Nausea / Verified 07/05/25 21:28
Vomiting
warfarin (From Coumadin) Allergy Hives Verified 07/05/25 21:28
Home Medications
�Medication �Instructions �Recorded �Confirmed �Last Taken �Type
ascorbic acid (vitamin C) 1,000 mg 1 g PO DAILY Supplement 08/15/08 07/05/25 08/09/24 History
tablet (Vitamin C)
levothyroxine 50 mcg tablet 50 mcg PO DAILY Thyroid 08/15/08 07/05/25 08/10/24 History
(Synthroid)
denosumab 60 mg/mL subcutaneous 60 mg SC [id number] OSTEOPOROSIS 05/25/22 07/05/25 01/28/25 History
syringe (Prolia)
diclofenac sodium 1 % topical gel 1 ea topical DAILYPRN PRN back, 05/25/22 07/05/25 08/10/24 History
(Arthritis Pain (diclofenac)) knees, shoulders
losartan 100 mg tablet 100 mg PO DAILY Blood Pressure 05/25/22 07/05/25 08/09/24 History
nebivolol 10 mg tablet (Bystolic) 10 mg PO QPM Blood Pressure 05/25/22 07/05/25 08/09/24 History
spironolactone 50 mg tablet 50 mg PO QPM Blood Pressure 05/25/22 07/05/25 08/09/24 History
zinc acetate 50 mg (zinc) capsule 50 mg PO DAILY Supplement 05/25/22 07/05/25 08/09/24 History
turmeric 400 mg capsule 1,000 mg PO DAILY Supplement 05/26/22 07/05/25 08/09/24 History
aspirin 81 mg tablet,delayed 81 mg PO DAILY Blood Clot 08/07/24 07/05/25 08/09/24 History
release Prevention/Tx
psyllium husk 3.4 gram/5.4 gram 2 tbsp PO BID Constipation 08/07/24 07/05/25 08/09/24 History
oral powder (Metamucil)
gabapentin 100 mg capsule 100 mg PO DAILY Pain 08/10/24 07/05/25 08/09/24 History
gabapentin 100 mg capsule 300 mg PO QPM Pain 08/10/24 07/05/25 08/09/24 History
ipratropium bromide 21 mcg (0.03 2 spray intranasal BID Allergies 08/10/24 07/05/25 08/09/24 History
%) nasal spray
magnesium oxide 500 mg PO DAILY #10 tabs 08/10/24 07/05/25 Unknown Rx
vitamin B complex 1 tab PO DAILY 07/05/25 07/05/25 Unknown History
Review of Systems
-
Unable to Obtain full review of systems at this time due to: Other (Per HPI)
Vitals / Labs / Diagnostic Testing
Vital Signs
Temp Pulse Resp BP Pulse Ox
97.5 F 56 18 117/64 94
07/05/25 23:45 07/06/25 05:30 07/06/25 05:30 07/06/25 05:30 07/06/25 05:15
Lab Data
07/06/25 04:12
07/06/25 04:12
Diagnostic Testing:
Physical Exam
-
Exam:
Well-nourished and well-developed in no apparent distress
HEENT-atraumatic, normocephalic
Neck-supple, no JVD, no bruit
Heart-regular rate and rhythm-no murmurs, rubs or gallops
Chest-clear to auscultation, no wheezes, crackles
Back-no tenderness
Abdomen-soft, nontender, nondistended, no hepatosplenomegaly
Extremities-no cyanosis, clubbing, edema and good peripheral pulses
Integument-intact, no rashes, lesions or ecchymosis
Neurology-alert and oriented, nonfocal motor and sensory exam
Assessment
-
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
2.5 mm partial obstructing calculus in the distal right ureter and underwent right ureteral stone manipulation right JJ stent placement and supervising floorperson consulted for urosepsis/critical care management 07/06/2025.
Urosepsis unresponsive to fluids requiring pressors
Pyelonephritis/cystitis with right ureteral stone
Status post ureteral stone manipulation with right JJ stent placement-Dr. Dubose 07/05/2025
KARON
Leukocytosis
Mild hyponatremia
Hyperglycemia
Hypomagnesemia
Mild transaminitis
Conditions present prior to admission:
Hypertension.
Hyperlipidemia.
Hypothyroid.
Rectocele repair. Total abdominal hysterectomy.
Plan
Admit patient to medical intensive care unit for persistent hypotension despite fluid resuscitation requiring pressors
Supplement oxygen as needed
High flow oxygen if needed
BiPAP if necessary
Intubate and mechanically ventilate if necessary
Aspiration precautions
Nebulizers if needed
Obtain cultures
Empiric antibiotics to cover urosepsis
Monitor leukocytosis
Fluid resuscitation with 30 mL/kg crystalloid-preferably lactated ringer-(less KARON) with subsequent boluses as needed
Monitor lactate
Follow CVP if possible
Attempt noninvasive bedside tissue perfusion evaluation to see if fluid bolus responsive
Measure pulse pressure and stroke volume variation if patient on ventilator, passively breathing without arrhythmia and with temporary large tidal volume ventilation and if > 13% then likely fluid bolus responsive
If patient active then consider measuring bedside leg lift for 3 minutes and if cardiac output increases or if there is a rise of 2-4 on end-tidal CO2 then fluid bolus
If bedside ultrasound available then measure IVC diameter variation to evaluate for fluid bolus responsiveness
Begin pressors as needed for MAP goal of 65-Norepinephrine first, then Vasopressin and consider Angiotensin II if continues to be hypotensive
Consider methylene blue if available-specific inhibitor of induced nitric oxide synthase iNOS and its downstream enzyme soluble guanylate cyclase-noninferiority study shown to reduce time to vasopressor discontinuation, decreased ICU length of stay,
hospital stay but no change in mortality-published Critical Care 11/09/2022
If persistently hypotensive then consider checking random cortisol-hydrocortisone if random less than 3, if 3-15 then consider ACTH stimulation test
If persistently hyperthermic then correcting hyperthermia can decrease pressor requirements, increased chances of reversal of shock and decrease mortality
Urology following-operative records reviewed
Follow LFTs
Monitor renal function
Consider nephrology evaluation if renal function worsens,-suspect will continue to improve
DVT prophylaxis
Early nutrition if possible
Early mobilization/bedside range of motion
If patient able to be weaned off norepinephrine then patient could be transferred out of ICU-supervising floorperson will sign off
Critical care statement: A total of 55 minutes of critical care time was provided for this patient today. This includes management of unstable vital signs, evaluation of the patient at bedside, reviewing the patient's pertinent medical records
including radiographs, pressor management, microbiology, laboratory evaluations, and discussion with primary team, consultants, pharmacy, nutrition, physical therapy, case management, charge nurse, critical care nursing, and respiratory therapy.
Diagnostic data:
Chest x-ray 09/05/2024-NAD
Brain MRI 02/24/2025-right paramedial parietal lobe there is a focus of being decreased T1 and decreased T2 weighted signal could be from previous hemorrhage
CT abdomen and pelvis 07/05/2025-heart is mildly enlarged, mild calcific atherosclerotic plaques in coronary arteries, mild elevation of right hemidiaphragm, small amount of subsegmental atelectasis, severe acute right pyelonephritis, 2.5 mm
partially obstructing calculus right distal ureter, severe acute cystitis, 1.6 cm gallstone
Echocardiogram 08/18/2024-EF 55-60%, mild aortic regurgitation
Data Reviewed
-
EKG: Report reviewed by me
Radiology: Report reviewed by me
CT Scan: Report reviewed by me
Medical Tests (Nuc Med, Echo etc): Report reviewed by me
Labs: Labs reviewed by me
Old Records: Reviewed
Critical Care Time (in minutes): 55
--- NOTE | 2025-07-06 07:46 | W.PN.HOSP.TC ---
Addendum entered and electronically signed by Charis Ray MD 07/06/25 18:26:
I saw and evaluated the patient independently. I reviewed and discussed the resident�s note and agree with findings and plan as documented by Dr. Mcqueen.
GENERAL: well developed, well nourished, female in no apparent distress
HEENT: NC/AT--no O2 requirements
HEART: regular rate and rhythm, +S1, +S2, EVON
LUNGS : clear to auscultation bilaterally
ABDOM: soft, nontender, nondistended, + bowel sounds--no CVA tenderness
EXT: no cyanosis, clubbing, or edema
Septic shock with hypotension not responsive to appropriate IVF resuscitation, requiring vasopressors--secondary to pyelonephritis complicated by right-sided partially obstructing stone in the distal ureter--apprec urology--s/p cystoscopy, with
stone manipulation, with right stent placement--off pressors--cont IVF--cont cefepime and follow cultures--hopeful d/c in AM
Essential HTN--multidrug requiring--holding meds--restart as clinically able
hyponatremia--follow--possibly due to SIADH from pain/infection
hypothyroid--cont synthroid
DVT Proph - heparin sq
Code status - Full Code
ok to transfer to tele
Original Note:
Today's Communication/Plan
-
Bass catheter was removed.
Transferred to Telemetry
Upgraded to regular diet
Continue IV Cefepime, Aspirin and Synthroid
Can expect frequency, urgency and hematuria due to stent.
Awaiting cultures to dictate rest of patients stay.
Trend labs for signs of infection/inflammation
Can follow up on stone as OP
Assessment / Plan
Assessment / Plan
Impression: This is a 79-year-old female with past medical history significant for hypertension, hyperlipidemia, hypothyroid presenting to the emergency department with flank pain.
Patient reported symptoms began about 3 days ago. She reported chills and then severe right-sided flank pain. She denied having urinary symptoms. The chills and flank pain resolved but the following day she did record again with severe chills and
then right-sided flank pain. She saw her PMD and was started on ciprofloxacin which she took a dose today. However despite taking the Cipro she had recurrent chills and right-sided flank pain again. She denies any dysuria, hematuria urgency or
frequency. She denies nausea or vomiting or diarrhea.
She follows with nephrology for uncontrolled hypertension and on multiple antihypertensives. She denies any history of nephrolithiasis. She denies any history of recurrent urinary tract infections.
In the emergency department patient was hypotensive with a blood pressure 187/51, pulse of 87 and satting 97% on room air. Temperature was 99. She had UA which is markedly positive. CBC shows 3.2 WBCs but 14% bands normal hemoglobin and
platelets. Electrolytes are notable for a sodium of 130 but otherwise notable for a BUN and creatinine of 32 and 1.6. Lactic acid was 2.2.
CT of the abdomen pelvis showing SEVERE ACUTE RIGHT PYELONEPHRITIS. 2.5 mm partially obstructing calculus in the distal right ureter. SEVERE ACUTE CYSTITIS.
Plan:
#Septic shock and hypotension secondary to pyelonephritis complicated by right-sided partially obstructing stone in the distal ureter.
- admit to icu as map < 60 despite crystalloids
- s/p 2 L LR, continue w/ LR at 125 ml/hr for now
- holding all her antihypertensives for now
- Dr. Dubose performed a cystoscopy, with stone manipulation, with right stent placement
- As per Urology, can expect frequency, urgency and hematuria due to stent. Awaiting cultures to dictate rest of patients stay.
- Will handle stone as OP
- Has been off of Levophed since last night -- transfer to telemetry-- update diet to regular
- As per ID, continue IV Cefepime and trend WBC --15.2
- Continue Aspirin and Synthroid
DVT PPX - heparin sq
Code status - Full Code
Anticipated Discharge: 24 - 48 hours
Subjective/Interval History
-
Date of Service: July 06, 2025
Objective Data
-
Labs:
Laboratory Results
07/06/25
04:12
WBC 15.2 H
Hgb 12.5
Hct 37.4
Plt Count 159
Sodium 132 L
Potassium 4.5
Chloride 100
Carbon Dioxide 25
BUN 25 H
Creatinine 1.2 H
Glucose 164 H
Calcium 7.9 L
Vital Signs:
Vital Signs
Temp Pulse Resp BP Pulse Ox
97.5 F 56 18 117/64 94
07/05/25 23:45 07/06/25 05:30 07/06/25 05:30 07/06/25 05:30 07/06/25 05:15
I&O
07/05/25 07/06/25 07/07/25
06:59 06:59 06:59
Output Total 1100 / 1100
Balance -1100 / -1100
CT of the abdomen pelvis showing SEVERE ACUTE RIGHT PYELONEPHRITIS. 2.5 mm partially obstructing calculus in the distal right ureter. SEVERE ACUTE CYSTITIS.
--- NOTE | 2025-07-06 08:30 | PTCARENOTE ---
Assumed care of pt at 0715 following shift report. Pt asleep, easily arousable to name. Physical assessment completed as documented. Pt w/o complaint. Bass catheter patent and draining clear yellow urine w/ streaks of blood noted. Comfort care
provided. Pt independently repositions self in bed. Call peterson remains w/in pt reach. Safe environment maintained.
[2025-07-06] MEDS: NEURONTIN 100 MG PO (10:10)
[2025-07-06] MEDS: ASPIR LOW (ENTERIC COATED) 81 MG PO (10:10)
[2025-07-06] MEDS: STERILE WATER FOR INJECTION 10 ML IV ×2 (10:58→17:29)
[2025-07-06] MEDS: MAXIPIME 1000 MG IV ×2 (10:58→17:29)
--- NOTE | 2025-07-06 11:34 | CON.ID ---
Consultation
-
Date/Time Consultation Requested: July 06, 2025 0542
Date/Time Consultation Performed: July 06, 2025 1135
Requesting Provider: Dr. Jhonny Aguilar
Performing Provider: Dr. Lidia Coronel
Reason for Consultation: Septic shock
Chief Complaint / Past History
Chief Complaint
Right flank pain
History of Present Illness
79-year-old female with history of hypertension who presented to the ER July 05 due to right flank pain. Symptoms started 3 days prior to admission with chills and flank pain. Initially symptoms improved but recurred the next day. She saw her
primary care physician who prescribed Cipro. She had 1 dose of Cipro without improvement. Pain became severe. Positive fevers and chills. No dysuria. No gross hematuria. In the ER, patient was hypotensive. White count 12.1. CAT scan shows
severe right pyelonephritis with obstructive renal stone. She was taken to the OR status post stone manipulation and right ureter stent placement. She is currently on cefepime. Today patient reports she feels better. No further flank pain. No
history of recurrent UTIs.
Past History
Additional Past Medical History:
Hypertension
Hypothyroidism
Dyslipidemia
IBS
Hyperparathyroidism status post parathyroidectomy
Additional Past Surgical History:
SANTOS
Allergy History:
meperidine (From Demerol) Allergy (Verified 07/05/25 21:28)
Nausea / Vomiting
morphine Allergy (Verified 07/05/25 21:28)
Nausea / Vomiting
warfarin (From Coumadin) Allergy (Verified 07/05/25 21:28)
Hives
Medications Reviewed: Yes
Current Antibiotics:
Cefepime (d2)
Social History
Tobacco: Non-Smoker
Alcohol: Occasional
Drug: None
Personal:
Living: With Family
Family History
Family History: Not Pertinent
Review of Systems
Review of Systems
General: Fever, Chills and Change in Appetite
HEENT: Negative Sinus Problems or Headache
Cardiovascular: Negative Chest Pain or Dyspnea
Respiratory: Negative Dyspnea or Cough
Gasteroenterology: Negative Nausea, Vomiting or Diarrhea
Genital / Urological: Flank Pain; Negative Dysuria
Endocrine: Weakness
All systems: All other systems were reviewed and were negative
Vital Signs
Temp Pulse Resp BP Pulse Ox
98.1 F 58 16 135/67 95
07/06/25 08:54 07/06/25 10:30 07/06/25 10:30 07/06/25 10:30 07/06/25 10:00
Physical Exam
Physical Exam
Constitutional: No Acute Distress and Comfortable
Eyes: No Conjunctival Hemorrhage and Sclera Anicteric
Cardiovascular: Regular Rate and S1/S2
Pulmonary: Clear
Gastrointestinal: Soft, Non Tender, Non Distended and Normal Bowel Sounds
Genito-Urinary: Negative CVA Tenderness
Extremities: Negative Edema
Neurological: AO x 3
Lab / Diagnostic Study Results
07/06/25 04:12
07/06/25 04:12
Total Counted 100 07/05/25 18:04
Abs Neuts (Manual) 2.8 10^3/uL (1.4-6.5) 07/05/25 18:04
Segmented Neutrophils 75 % (42-75) 07/05/25 18:04
Band Neutrophils 14 % (0-3) H 07/05/25 18:04
Lymphocytes (Manual) 8 % (20-51) L 07/05/25 18:04
Eosinophils (Manual) 1 % (0-6) 07/05/25 18:04
Basophils (Manual) 1 % 07/05/25 18:04
Lactic Acid 2.2 mmol/L (0.7-2.0) H 07/05/25 18:04
Ur Squamous Epith Cells >30 /LPF (Few) 07/05/25 18:23
Microbiology Results
Micro:
07/05/25 18:23 Urine Culture - Pending
Urine
07/05/25 18:04 Blood Culture - Pending
Blood/Venous
07/05/25 CT a/p: SEVERE ACUTE RIGHT PYELONEPHRITIS. 2.5 mm partially obstructing calculus in the distal right ureter. SEVERE ACUTE CYSTITIS.
Assessment / Plan
#Complicated UTI/right obstructive uropathy status post stent placement 07/05
# Leukocytosis
# Hypotension resolved
# KARON
- Urine culture pending
- Can continue cefepime pending culture data
- Trend white count and temps.
--- NOTE | 2025-07-06 11:45 | PTCARENOTE ---
Pt's sister and friend visiting at bedside. Pt remains w/o complaint. Bass catheter removed per order. Pt tolerated well. AM Hygiene completed and pt OOB to chair w/ assist. Denies c/o dizziness or SOB. IVF complete. Pt tolerating ordered diet. No
changes from previous assessment findings or new complaints received.
--- NOTE | 2025-07-06 12:30 | W.PN.URO.CBU ---
Today's Communication / Plan
-
expect frequency urgency and hematuria due to stent
Assessment / Plan
-
rt ureteral stone with hypotession sepsis stented responded well await cxs to dictae rest of stay will address stone as outpatient
Diagnosis
-
Date of Service: July 06, 2025
-
Patient Diagnosis:
Post Op Day:
Patient Diagnosis:uro sepsois hypotension due to 3mm distal rt uretral stone
Post Op Day:
Subjective
-
much improved
Objective
-
Vital Signs
Temp Pulse Resp BP Pulse Ox
97.4 F 58 16 135/67 95
07/06/25 12:15 07/06/25 10:30 07/06/25 10:30 07/06/25 10:30 07/06/25 10:00
Intake and Output
07/05/25 07/06/25 07/07/25
06:59 06:59 06:59
Intake Total 240 / 240
Output Total 1100 / 1100 825 / 825
Balance -1100 / -1100 -585 / -585
Intake:
Oral fluids 240 / 240
Output:
Urine, Bass 1100 / 1100 825 / 825
Laboratory Results
07/06/25 04:12
07/06/25 04:12
Review of Systems
-
: Frequency and Urgency
Physical Exam
-
General - well developed, well nourished, no acute distress
Chest - clear bilaterally
Abdomen - soft, non-tender, positive bowel sounds, no CVAT, no incisional pain or distention
Genitalia - normal
Rectal - normal
Skin - warm & dry with no rash
Neuro - AOx3, no motor deficits
Extremities - no clubbing, no cyanosis, no edema
Incision - clean, dry
Dressing - clean, dry, intact
Counseling
-
paln per hospitalist
Care Review
Data Reviewed
Discussed with: Family
CT Scan: Image Pers Reviewed
--- NOTE | 2025-07-06 14:40 | PN.CDI ---
CDI
- -
CDI:
Physician Documentation Request
Admit Date: 07/05/25 22:21
Dear Doctor Richar,
Patient admitted with sepsis with KARON and hypotension secondary to pyelonephritis.
07/05 Na 130
07/06 Na 132
Patient received IV Lactated Ringer's.
Based on the above, could you clarify in the progress notes, the appropriate diagnosis, if significant, that supports the above abnormalities and additional evaluation, monitoring and/or treatment rendered:
Hyponatremia
Insignificant abnormal lab findings
Other
Use of terms such as suspected, likely, concern for, or probable (associated with a specific diagnosis that is being evaluated, monitored, or treated as if it exists) are acceptable and can be coded in the inpatient setting, when documented at the
time of discharge.
Thank you,
Maliha OSMAN,RN,CCDS
CDI Specialist
Available via tiger text
Please use your independent medical judgment in providing your response.
[2025-07-06] MEDS: NEURONTIN 300 MG PO (17:28)
--- NOTE | 2025-07-06 17:55 | CM ---
Patient seen at bedside with physicians and sister earlier this am in icu. Patient states that she lives in a 2 story home with her sister. Patient PCP Dr. Quan and he uses the [facility] in [place]. 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
her sister supports. CM will continue to follow for discharge planning needs.
Plan; home with sister; watch for VN needs/ current with chuckie
--- NOTE | 2025-07-06 18:00 | PTCARENOTE ---
Pt's HR down to 37. Pt sitting up in bedside chair eating dinner. Denies any complaints. 'I didn't even know' BP 124/67 (previously SBP 127). HR 40's to 50's. Pt instructed to notify staff of onset any new symptoms. Will continue to monitor HR. Call
kristen w/in pt reach.
--- NOTE | 2025-07-06 19:26 | W.DCSUMMARY ---
Addendum entered and electronically signed by Charis Ray MD 07/08/25 16:00:
Read, reviewed, and agree. See same day progress note for additional details. Time spent coordinating care, DC planning, review of DC plan of care with resident, transition of care, review of records in EMR, med rec, consults, notes, d/w
consultants, nursing, family, and CM = 33 minutes
Original Note:
Discharge Summary
Discharge Data
Date of Admission: 07/05/25
Date of Discharge: 07/08/25
-
Pending Results: No
Hospital Course
Discharging Physician : Dr. Charis Ray, Dr. Denisse Mcqueen
Disposition : Home
Primary care physician : Dr. Archie Radford
Principal Discharge diagnosis : Septic shock with hypotension secondary to pyelonephritis complicated by right-sided partially obstructing stone in the distal ureter
Chronic Discharge diagnosis : Essential Hypertension, Hyponatremia, Hypothyroidism
Hospital Course : This is a 79-year-old female with past medical history significant for hypertension, hyperlipidemia, hypothyroid presenting to the emergency department with flank pain.
Patient reported symptoms began about 3 days ago. She reported chills and then severe right-sided flank pain. She denied having urinary symptoms. The chills and flank pain resolved but the following day she did record again with severe chills and
then right-sided flank pain. She saw her PMD and was started on ciprofloxacin which she took a dose today. However despite taking the Cipro she had recurrent chills and right-sided flank pain again. She denies any dysuria, hematuria urgency or
frequency. She denies nausea or vomiting or diarrhea.
She follows with nephrology for uncontrolled hypertension and on multiple antihypertensives. She denies any history of nephrolithiasis. She denies any history of recurrent urinary tract infections.
In the emergency department patient was hypotensive with a blood pressure 187/51, pulse of 87 and satting 97% on room air. Temperature was 99. She had UA which is markedly positive. CBC shows 3.2 WBCs but 14% bands normal hemoglobin and
platelets. Electrolytes are notable for a sodium of 130 but otherwise notable for a BUN and creatinine of 32 and 1.6. Lactic acid was 2.2.
Noted to have severe acute right pyelonephritis and 2.5 mm partial obstructing calculus in the distal right ureter and underwent right ureteral stone manipulation right JJ stent placement and screen printing inspector consulted for urosepsis/critical care
management 07/06/2025. She feels much improved after the procedure. Norepinephrine was slowly weaned. She denies any shortness of breath, chest pain, chest tightness, productive cough, abdominal pain, nausea, flank pain, lower extremity swelling
or focal weakness. (07/08/2025) As per her overnight nurse, patient had 6 out of 10 right flank pain a little after midnight and increased pain post void. She described it as the pain she had prior to her cystoscopy. Her night team did another
urinalysis and she was given Tylenol and an ice pack placed on her right side. Patient says the pain resolved. Patients medication were switched from IV to oral and she was given instructions for follow up. Patient is ready for discharge.
Important imaging findings :
CT of the abdomen pelvis showing SEVERE ACUTE RIGHT PYELONEPHRITIS. 2.5 mm partially obstructing calculus in the distal right ureter. SEVERE ACUTE CYSTITIS.
Abdomen X Ray: IMPRESSION: Right double-J ureteral stent in normal position.
Micro Blood Specimen: No Growth in 24 hours
Micro Urine Specimen: Mixed Leatha/ Probable Contamination
Procedure findings :
Discharge Plan
-
Patient Disposition: Home (Routine Discharge)
Discharge Diagnosis/Procedures: Septic shock with hypotension secondary to pyelonephritis complicated by right-sided partially obstructing stone in the distal ureter s/p cystoscopy, with stone manipulation, with right stent placement, Essential
hypertension, Hyponatremia, Hypothyroidism
Condition: Good
Diet: Regular
Activity: With assistance
Driving Restrictions: As prior to admission
Bathing Restrictions: None
Blood Work: Follow up with Dr. Dubose to address stone as outpatient
Other Services: VN
Specialty Instructions: Weigh Daily- Call MD for wt gain/loss 3 lbs overnight/5 lbs in 1 week
Activity Restrictions/Additional Instructions:
If taking antacid, iron, zinc, magnesium, aluminum, calcium, or sucralfate, take these products 6 hours before or 2 hours after ciprofloxacin.
Monitor for tendinitis while on cipro.
Follow up with Dr. Dubose to discuss procedure for kidney stone removal
[facility]: [phone]
Referrals:
Arthur Dubose MD [Active, Urology] - in one week
Archie Radford CRNP [Family Provider] - in less than 1 week
Prescriptions:
New
ciprofloxacin HCl 500 mg tablet
500 mg PO BID Qty: 14 0RF
Continued
ascorbic acid (vitamin C) [Vitamin C] 1,000 mg Tablet
1 g PO DAILY
levothyroxine [Synthroid] 50 mcg Tablet
50 mcg PO DAILY
Patient Comments:
50MCG
zinc acetate 50 mg (zinc) Capsule
50 mg PO DAILY
losartan 100 mg Tablet
100 mg PO DAILY
spironolactone 50 mg Tablet
50 mg PO QPM
diclofenac sodium [Arthritis Pain (diclofenac)] 1 % Gel
1 ea TOPICAL DAILYPRN PRN (Reason: back, knees, shoulders)
Patient Comments:
right shoulder
nebivolol [Bystolic] 10 mg Tablet
10 mg PO QPM
Prolia 60 mg/mL Syringe
60 mg SC [id number]
Patient Comments:
Pt states takes in January/July
turmeric 400 mg Capsule
1,000 mg PO DAILY
aspirin 81 mg Tablet,Delayed Release (Dr/Ec)
81 mg PO DAILY
Metamucil 3.4 gram/5.4 gram Powder
2 tbsp PO BID
gabapentin 100 mg capsule
100 mg PO DAILY
gabapentin 100 mg capsule
300 mg PO QPM
ipratropium bromide 21 mcg (0.03 %) spray,non-aerosol
2 spray INTRANASAL BID
magnesium oxide 500 mg magnesium tablet
500 mg PO DAILY Qty: 10 0RF
vitamin B complex Tablet
1 tab PO DAILY Qty: 0 0RF
Discharge Orders:
Discharge Patient (As Directed); Ordered 07/08/25
Ordered By: Denisse Mcqueen
Discharge Date and Time
Print Language: CHINESE
--- NOTE | 2025-07-06 21:46 | PTCARENOTE ---
Patient received oob to chair, and AAOX3. Able to make her needs known. Patient verbalizes concerns regarding recurring chills and her urine color being dark/tea colored and cloudy. The patient also verbalized 6/10 pain but declines pain management
at this time. ELEVATOR CONDUCTOR made aware and Normal Saline at 80ml/hr ordered. Plan of care for the shift reviewed with the patient. Sinus katt on the monitor with HR in the low 50s with occasional decrease to 37. Pt's asymptomatic. Breath sounds are CTA. SpO2
at 95% on RA. Pt's independent in the room. All needs are met at this time.
[2025-07-06] MEDS: NSS 1000 IV (22:08)
[2025-07-07] VITALS (8 sets, daily range): BP systolic 99–145; BP diastolic 53–82; BMI 27.1; BMI 26.8
[2025-07-07] MEDS: MAXIPIME 1000 MG IV ×3 (02:05→16:17)
[2025-07-07] MEDS: STERILE WATER FOR INJECTION 10 ML IV ×3 (02:06→16:17)
[2025-07-07 03:55] LABS: Hematocrit 35.0 % (37.0-47.0); Hemoglobin 12.4 g/dL (12.0-16.0); Mean Corp Hgb Conc. 35.4 g/dL (33.0-37.0); Mean Corpuscular Volume 90.0 fL (81.0-99.0); Platelet Count 181 10^3/uL (130-400); Red Cell Dist. Width 12.8 % (11.5-14.5)
[2025-07-07 04:29] LABS: ALT (SGPT) 33 U/L (0-35); AST (SGOT) 23 U/L (14-36); Albumin 2.8 g/dl (3.5-5.0); Alkaline Phosphatase 78 U/L (38-126); Blood Urea Nitrogen 23 mg/dl (7-17); Calcium 8.5 mg/dl (8.4-10.2); Carbon Dioxide 25 mmol/L (22-30); Chloride 103 mmol/L (98-107); Estimated Creatinine Clearance 49 ml/min; Glucose 173 mg/dl (70-99); Magnesium 1.8 mg/dl (1.6-2.3); Potassium 3.9 mmol/L (3.5-5.1); Sodium 131 mmol/L (135-145); Total Protein 5.5 g/dl (6.3-8.2); eGFR > 60.00
[2025-07-07 05:35] LABS: Absolute Neutrophils -Man Diff 16.9 10^3/uL (1.4-6.5); Normal RBC Morphology Yes; Platelets Checked Yes; Total Cells Counted 100; Toxic Granulation 1+; Vacuolated Segs Occasional
[2025-07-07] MEDS: SYNTHROID 50 MCG PO (06:01)
[2025-07-07] MEDS: ASPIR LOW (ENTERIC COATED) PO (07:58)
[2025-07-07] MEDS: HEPARIN 5000 UNITS SC ×2 (07:58→16:16)
[2025-07-07] MEDS: NEURONTIN PO (07:58)
--- NOTE | 2025-07-07 09:35 | W.PN.ID1 ---
Date of Service
Date of Service: July 07, 2025
Today's Communication
Continue cefepime.
Assessment / Plan
#Complicated UTI/right obstructive uropathy status post stent placement 07/05
# E. coli bacteremia - source
# Leukocytosis trending up
# Hypotension resolved
# KARON improving
- Urine culture : mixed shad
- Repeat bcx pending
- Can continue cefepime pending culture data
- Trend white count
Chief Complaint
-: Leukocytosis and UTI
Subjective / Review of Systems
Had dysuria, dark urine last night. Symptoms better today with fluids.
No diarrhea.
Vital Signs / Physical Exam
Vital Signs
Vital Signs
Temp Pulse Resp BP Pulse Ox
98 F 61 16 118/53 93
07/07/25 08:17 07/07/25 06:00 07/06/25 18:01 07/07/25 04:00 07/07/25 06:00
Physical Exam
Constitutional: No Acute Distress and Comfortable
Cardiovascular: Regular Rate and S1/S2
Pulmonary: Clear
Gastrointestinal: Soft, Non Tender and Non Distended
Genito-Urinary: Negative CVA Tenderness
Extremities: Negative Edema
Neurological: AO x 3
Objective Data
Lab Data
Lab Results
07/07/25 03:23
07/07/25 03:23
Estimated Creat Clear 49 ml/min 07/07/25 03:23
Lactic Acid 1.3 mmol/L (0.7-2.0) 07/07/25 03:23
Total Bilirubin 0.3 mg/dl (0.2-1.3) 07/07/25 03:23
AST 23 U/L (14-36) 07/07/25 03:23
ALT 33 U/L (0-35) 07/07/25 03:23
Alkaline Phosphatase 78 U/L (38-126) 07/07/25 03:23
Most recent labs reviewed.
Micro Results:
07/05/25 18:04 Blood Culture - Preliminary
Blood/Venous Escherichia coli
Gram Stain - Preliminary
07/07/25 07:49 Blood Culture - Pending
Blood/Venous
07/05/25 18:23 Urine Culture - Final
Urine
07/05/25 CT a/p: SEVERE ACUTE RIGHT PYELONEPHRITIS. 2.5 mm partially obstructing calculus in the distal right ureter. SEVERE ACUTE CYSTITIS.
[2025-07-07] MEDS: NEURONTIN 100 MG PO (09:42)
[2025-07-07] MEDS: ASPIR LOW (ENTERIC COATED) 81 MG PO (09:42)
--- NOTE | 2025-07-07 11:33 | PTCARENOTE ---
assessments per work list. denies pain, voiding tea colored cloudy urine with c/o slight burning upon urinaiton. sinus bradycardia, occasional blocked pac with bradycardia to 40. asymptomatic and self resolves. remains oob to chair. call peterson in
reach
--- NOTE | 2025-07-07 12:55 | W.PN.URO.CBU ---
Today's Communication / Plan
-
Continue abx
Assessment / Plan
-
79F with rt ureteral stone with hypotension, sepsis
s/p ureteral stent 07/05
E coli bacteremia
- Continue broad spectrum abx pending culture/sens
Follow up with Dr. Dubose to address stone as outpatient
Diagnosis
-
Date of Service: July 07, 2025
-
Patient Diagnosis:
Post Op Day:
Patient Diagnosis:urosepsis
hypotension due to 3mm distal rt uretral stone
E coli bacteremia
Post Op Day:
Subjective
-
some dizziness today
No weakness, CP, SOB, or other localized sx
Urinary sx controlled
Dark urine
Objective
-
Vital Signs
Temp Pulse Resp BP Pulse Ox
98 F 57 16 132/82 99
07/07/25 11:08 07/07/25 11:27 07/06/25 18:01 07/07/25 11:27 07/07/25 11:34
Intake and Output
07/06/25 07/07/25 07/08/25
06:59 06:59 06:59
Intake Total 2080 / 2160 1040 / 1040
Output Total 1100 / 1100 1675 / 1675 500 / 500
Balance -1100 / -1100 405 / 485 540 / 540
Intake:
Oral fluids 1440 / 1440 720 / 720
IV fluids (Total) 640 / 720 320 / 320
Nss 1,000 ml @ 80 mls/hr IV . 640 / 720 320 / 320
[id number] DIDI Rx#:[id number]
Output:
Urine, Bass 1100 / 1100 825 / 825
Urine, Voided 850 / 850 500 / 500
Other:
Number of approximated MODERATE 1
amounts of urine
Number of approximated LARGE 1
amounts of urine
Laboratory Results
07/07/25 03:23
07/07/25 03:23
Physical Exam
-
General - well developed, well nourished, no acute distress
Chest - clear unlabored
Abdomen - soft, non-tender
--- NOTE | 2025-07-07 13:15 | PTCARENOTE ---
patient c/o dizziness while sitting in the chair. vitals signs stable. patient states she has a history of vertigo. states just did therapy. TT to hospitalist and resident to update. report called to [facility]
--- NOTE | 2025-07-07 14:10 | PTCARENOTE ---
Pt. arrived via bed from ICU to [address]. Pt. reports her dizziness resolved after eating. Pt. has no c/o pain at this time, VSS, placed on #55 tele monitor, sinus katt in 50s. Pt. resting in bed, call peterson within reach.
--- NOTE | 2025-07-07 15:09 | W.PN.HOSP.TC ---
Addendum entered and electronically signed by Charis Ray MD 07/07/25 15:51:
I saw and evaluated the patient independently. I reviewed and discussed the resident�s note and agree with findings and plan as documented by Dr. Mcqueen.
GENERAL: well developed, well nourished, female in no apparent distress
HEENT: NC/AT--no O2 requirements
HEART: regular rate and rhythm, +S1, +S2, EVON
LUNGS : clear to auscultation bilaterally
ABDOM: soft, nontender, nondistended, + bowel sounds--no CVA tenderness
EXT: no cyanosis, clubbing, or edema
Septic shock with hypotension not responsive to appropriate IVF resuscitation, requiring vasopressors--secondary to pyelonephritis with E. coli bacteremia complicated by right-sided partially obstructing stone in the distal ureter--apprec
urology--s/p cystoscopy, with stone manipulation, with right stent placement--off pressors--stop IVF--cont cefepime for now--repeat blood cultures--hopeful d/c in AM
Essential HTN--multidrug requiring--holding meds--restart as clinically able
hyponatremia--follow--possibly due to SIADH from pain/infection
hypothyroid--cont synthroid
DVT Proph - heparin sq
Code status - Full Code
needlestick--pt was source pt--consented for HIV, Hepatitis testing
Original Note:
Today's Communication/Plan
-
Repeat blood culture: pending
Can continue cefepime pending culture data
Trend white count
Holding antihypertensives medication
Restart as clinically able
Follow up with Dr. Dubose to address stone as outpatient
Assessment / Plan
Assessment / Plan
Impression: This is a 79-year-old female with past medical history significant for hypertension, hyperlipidemia, hypothyroid presenting to the emergency department with flank pain.
Patient reported symptoms began about 3 days ago. She reported chills and then severe right-sided flank pain. She denied having urinary symptoms. The chills and flank pain resolved but the following day she did record again with severe chills and
then right-sided flank pain. She saw her PMD and was started on ciprofloxacin which she took a dose today. However despite taking the Cipro she had recurrent chills and right-sided flank pain again. She denies any dysuria, hematuria urgency or
frequency. She denies nausea or vomiting or diarrhea.
She follows with nephrology for uncontrolled hypertension and on multiple antihypertensives. She denies any history of nephrolithiasis. She denies any history of recurrent urinary tract infections.
In the emergency department patient was hypotensive with a blood pressure 187/51, pulse of 87 and satting 97% on room air. Temperature was 99. She had UA which is markedly positive. CBC shows 3.2 WBCs but 14% bands normal hemoglobin and
platelets. Electrolytes are notable for a sodium of 130 but otherwise notable for a BUN and creatinine of 32 and 1.6. Lactic acid was 2.2.
CT of the abdomen pelvis showing SEVERE ACUTE RIGHT PYELONEPHRITIS. 2.5 mm partially obstructing calculus in the distal right ureter. SEVERE ACUTE CYSTITIS.
Plan:
#Septic shock with hypotension not responsive to appropriate IVF resuscitation, requiring vasopressors--secondary to pyelonephritis complicated by right-sided partially obstructing stone in the distal ureter--s/p cystoscopy, with stone manipulation,
with right stent placement
Urine culture : mixed shad
Repeat blood culture: pending
Can continue cefepime pending culture data
Trend white count
#Complicated UTI/right obstructive uropathy status post stent placement 07/05
E. coli bacteremia - source
Leukocytosis trending up
Hypotension resolved
KARON improving
#Essential HTN
Multidrug requiring
Holding meds
Restart as clinically able
#Hyponatremia
Monitor
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
#Hypothyroid
Continue Synthroid
DVT Proph - heparin sq
Code status - Full Code
Anticipated Discharge: 24 - 48 hours
Subjective/Interval History
-
Date of Service: July 07, 2025
Patients blood culture came back positive for E. Coli infection. --Consult ID
No other acute overnight activities were reported for this patient.
Around 1 PM, patient c/o dizziness while sitting in the chair.
Vitals signs stable.
Patient states she has a history of vertigo.
After checking in on patient, she was feeling much better --repeat BP and HR were done and they were normal around her baseline--Patient is staying hydrated and eating appropriately.
She is transferred out of ICU onto telemetry floor.
.
Objective Data
-
Labs:
Laboratory Results
07/07/25
03:23
WBC 17.5 H
Hgb 12.4
Hct 35.0 L
Plt Count 181
Sodium 131 L
Potassium 3.9
Chloride 103
Carbon Dioxide 25
BUN 23 H
Creatinine 0.9
Glucose 173 H
Calcium 8.5
Total Bilirubin 0.3
AST 23
ALT 33
Alkaline Phosphatase 78
Vital Signs:
Vital Signs
Temp Pulse Resp BP Pulse Ox
97.6 F 57 16 142/76 98
07/07/25 14:06 07/07/25 14:06 07/07/25 14:06 07/07/25 14:06 07/07/25 14:06
I&O
07/06/25 07/07/25 07/08/25
06:59 06:59 06:59
Intake Total 2080 / 2160 1520 / 1520
Output Total 1100 / 1100 1675 / 1675 900 / 900
Balance -1100 / -1100 405 / 485 620 / 620
CT of the abdomen pelvis showing SEVERE ACUTE RIGHT PYELONEPHRITIS. 2.5 mm partially obstructing calculus in the distal right ureter. SEVERE ACUTE CYSTITIS.
Review of Systems
-
History Source: Patient
All other systems: Reviewed and negative
Cardiac: Reports Other (Low HR)
Physical Exam
-
General: Well Developed, Well Nourished, No Apparent Distress and Comfortable
HEENT: Normocephalic and Atraumatic
Respiratory: Clear to Auscultation
Cardiac: Regular Rhythm, S1/S2 and Murmur (Systolic Ejection)
Breast: Deferred by me
GI: Soft, Nontender, Nondistended and Normal Bowel Sounds
Musculoskeletal: No Clubbing, No Cyanosis and No Edema
Data Reviewed
-
CT Scan: Report Reviewed by me and Discussed with Physician
Labs: Labs Reviewed by me and Discussed with Physician
[2025-07-07] MEDS: NEURONTIN 300 MG PO (16:16)
[2025-07-07 18:52] LABS: Hepatitis B Surface Antigen Negative (Negative)
[2025-07-07 19:09] LABS: Hepatitis C Antibody Negative (Negative)
[2025-07-08] MEDS: TYLENOL 650 MG PO (00:07)
[2025-07-08 00:15] VITALS: BP 160/76
--- NOTE | 2025-07-08 00:32 | PTCARENOTE ---
Patient complaining of new onset 6/10 right flank pain. States this pain is new since her surgery and she had this pain prior to her cysto. Patient voided 300 of dark padmini urine, states it is 'darker than it was earlier', and is more painful post
void than it was before. Patient given PRN tylenol, refusing PRN IV dilaudid stating she 'doesn't want to mask the pain'. 98.4 temp, 98% on RA, BP 160/76, HR 67, RR 28. Patient given ice pack and reports some relief. LUBRICATOR GRANULATOR made aware, orders for UA.
Patient denies chills. Plan of care ongoing.
[2025-07-08 00:51] LABS: Urine Character Slightly Cloudy (Clear)
[2025-07-08] MEDS: HEPARIN 5000 UNITS SC ×2 (01:12→09:30)
[2025-07-08] MEDS: MAXIPIME 1000 MG IV (01:12)
[2025-07-08] MEDS: STERILE WATER FOR INJECTION 10 ML IV (01:12)
[2025-07-08 01:13] LABS: Urine Red Blood Cell >100 /HPF (0-2)
[2025-07-08 01:14] LABS: Urine White Cell 26-30 /HPF (0-5)
[2025-07-08 03:52] VITALS: BP 147/70
[2025-07-08] MEDS: SYNTHROID 50 MCG PO (05:25)
[2025-07-08 06:07] LABS: Hematocrit 38.8 % (37.0-47.0); Hemoglobin 13.3 g/dL (12.0-16.0); Mean Corp Hgb Conc. 34.3 g/dL (33.0-37.0); Mean Corpuscular Volume 89.2 fL (81.0-99.0); Nucleated Red Blood Cells % 0 %; Platelet Count 210 10^3/uL (130-400); Red Cell Dist. Width 12.9 % (11.5-14.5)
[2025-07-08 06:30] LABS: ALT (SGPT) 37 U/L (0-35); AST (SGOT) 24 U/L (14-36); Albumin 2.9 g/dl (3.5-5.0); Alkaline Phosphatase 90 U/L (38-126); Blood Urea Nitrogen 20 mg/dl (7-17); Calcium 8.4 mg/dl (8.4-10.2); Carbon Dioxide 25 mmol/L (22-30); Chloride 104 mmol/L (98-107); Estimated Creatinine Clearance 36 ml/min; Glucose 98 mg/dl (70-99); Magnesium 1.6 mg/dl (1.6-2.3); Potassium 4.1 mmol/L (3.5-5.1); Sodium 133 mmol/L (135-145); Total Protein 5.7 g/dl (6.3-8.2); eGFR 46.62
--- NOTE | 2025-07-08 07:28 | W.PN.HOSP.TC ---
Addendum entered and electronically signed by Charis Ray MD 07/08/25 15:55:
I saw and evaluated the patient independently. I reviewed and discussed the resident�s note and agree with findings and plan as documented by Dr. Mcqueen.
GENERAL: well developed, well nourished, female in no apparent distress
HEENT: NC/AT--no O2 requirements
HEART: regular rate and rhythm, +S1, +S2, EVON
LUNGS : clear to auscultation bilaterally
ABDOM: soft, nontender, nondistended, + bowel sounds--no CVA tenderness
EXT: no cyanosis, clubbing, or edema
Septic shock with hypotension not responsive to appropriate IVF resuscitation, requiring vasopressors--secondary to pyelonephritis with E. coli bacteremia complicated by right-sided partially obstructing stone in the distal ureter--apprec
urology--s/p cystoscopy, with stone manipulation, with right stent placement--off pressors--stop IVF--change cefepime to oral cipro through 07/14--repeat blood cultures negative
Essential HTN--multidrug requiring--holding meds--restart as clinically able
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
hypothyroid--cont synthroid
DVT Proph - heparin sq
Code status - Full Code
needlestick--pt was source pt--consented for HIV, Hepatitis testing
OK for D/C
Original Note:
Today's Communication/Plan
-
As per ID: time of discharge, transition to cipro 500mg po bid through 07/14/25
Patient is ready to be discharged.
Assessment / Plan
Assessment / Plan
Impression: This is a 79-year-old female with past medical history significant for hypertension, hyperlipidemia, hypothyroid presenting to the emergency department with flank pain.
Patient reported symptoms began about 3 days ago. She reported chills and then severe right-sided flank pain. She denied having urinary symptoms. The chills and flank pain resolved but the following day she did record again with severe chills and
then right-sided flank pain. She saw her PMD and was started on ciprofloxacin which she took a dose today. However despite taking the Cipro she had recurrent chills and right-sided flank pain again. She denies any dysuria, hematuria urgency or
frequency. She denies nausea or vomiting or diarrhea.
She follows with nephrology for uncontrolled hypertension and on multiple antihypertensives. She denies any history of nephrolithiasis. She denies any history of recurrent urinary tract infections.
In the emergency department patient was hypotensive with a blood pressure 187/51, pulse of 87 and satting 97% on room air. Temperature was 99. She had UA which is markedly positive. CBC shows 3.2 WBCs but 14% bands normal hemoglobin and
platelets. Electrolytes are notable for a sodium of 130 but otherwise notable for a BUN and creatinine of 32 and 1.6. Lactic acid was 2.2.
CT of the abdomen pelvis showing SEVERE ACUTE RIGHT PYELONEPHRITIS. 2.5 mm partially obstructing calculus in the distal right ureter. SEVERE ACUTE CYSTITIS.
Plan:
#Septic shock with hypotension not responsive to appropriate IVF resuscitation, requiring vasopressors--secondary to pyelonephritis complicated by right-sided partially obstructing stone in the distal ureter--s/p cystoscopy, with stone manipulation,
with right stent placement
Urine culture : mixed shad
Repeat blood culture: pending
Can continue cefepime pending culture data
Trend white count (17.5--12.1)
As per ID: time of discharge, transition to cipro 500mg po bid through 07/14/25.
#Complicated UTI/right obstructive uropathy status post stent placement 07/05
E. coli bacteremia - source
Leukocytosis trending up
Hypotension resolved
KARON improving
#Essential HTN
Multidrug requiring
Holding meds
Restart as clinically able
#Hyponatremia
Monitor
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
#Hypothyroid
Continue Synthroid
DVT Proph - heparin sq
Code status - Full Code
Anticipated Discharge: Within 24 hours
Subjective/Interval History
-
Date of Service: July 08, 2025
As per her overnight nurse, patient had 6 out of 10 right flank pain a little after midnight and increased pain post void. She described it as the pain she had prior to her cystoscopy. Her night team did another urinalysis and she was given
Tylenol and an ice pack placed on her right side. Patient says the pain resolved, it felt like a spasm.
Objective Data
-
Labs:
Laboratory Results
07/08/25
05:42
WBC 12.1 H
Hgb 13.3
Hct 38.8
Plt Count 210
Sodium 133 L
Potassium 4.1
Chloride 104
Carbon Dioxide 25
BUN 20 H
Creatinine 1.2 H
Glucose 98
Calcium 8.4
Total Bilirubin 0.3
AST 24
ALT 37 H
Alkaline Phosphatase 90
Vital Signs:
Vital Signs
Temp Pulse Resp BP Pulse Ox
98.5 F 61 16 147/70 98
07/08/25 03:52 07/08/25 03:52 07/08/25 03:52 07/08/25 03:52 07/08/25 03:52
I&O
07/07/25 07/08/25 07/09/25
06:59 06:59 06:59
Intake Total 0 / 2160 1999 / 1999
Output Total 1675 / 1675 1300 / 1300
Balance 405 / 485 700 / 700
CT of the abdomen pelvis showing SEVERE ACUTE RIGHT PYELONEPHRITIS. 2.5 mm partially obstructing calculus in the distal right ureter. SEVERE ACUTE CYSTITIS.
Review of Systems
-
History Source: Patient
All other systems: Reviewed and negative
Physical Exam
-
General: Well Developed, Well Nourished and No Apparent Distress (female)
HEENT: Normocephalic and Atraumatic; Negative Oxygen
Respiratory: Clear to Auscultation
Cardiac: Regular Rhythm, S1/S2 and Murmur (Systolic ejection murmur)
Breast: Deferred by me
GI: Soft, Nontender, Nondistended and Normal Bowel Sounds
Musculoskeletal: No Clubbing, No Cyanosis and No Edema
Data Reviewed
-
CT Scan: Report Reviewed by me and Discussed with Physician
Labs: Labs Reviewed by me and Discussed with Physician
[2025-07-08 07:30] VITALS: BP 145/67
[2025-07-08] MEDS: NEURONTIN 100 MG PO (09:29)
[2025-07-08] MEDS: ASPIR LOW (ENTERIC COATED) 81 MG PO (09:29)
--- NOTE | 2025-07-08 10:00 | W.PN.ID1 ---
Date of Service
Date of Service: July 08, 2025
Today's Communication
At time of discharge, transition to cipro 500mg po bid through 07/14/25.
Assessment / Plan
#Complicated UTI/right obstructive uropathy status post stent placement 07/05
# E. coli bacteremia - source
# Leukocytosis trending down
# Hypotension resolved
# KARON improving
- Urine culture : mixed shad
- Repeat bcx neg to date.
- De-escalate cefepime to ceftriaxone 2g IV q24
- At time of discharge, transition to cipro 500mg po bid through 07/14/25.
Chief Complaint
-: Leukocytosis and UTI
Subjective / Review of Systems
Had left flank spasms overnight, improved with ice pack.
Pushing fluid.
Vital Signs / Physical Exam
Vital Signs
Vital Signs
Temp Pulse Resp BP Pulse Ox
98.0 F 53 16 145/67 98
07/08/25 07:30 07/08/25 07:30 07/08/25 07:30 07/08/25 07:30 07/08/25 07:30
Physical Exam
Constitutional: No Acute Distress and Comfortable
Cardiovascular: Regular Rate and S1/S2
Pulmonary: Clear
Gastrointestinal: Soft, Non Tender and Non Distended
Genito-Urinary: Negative CVA Tenderness
Extremities: Negative Edema
Neurological: AO x 3
Objective Data
Lab Data
Lab Results
07/08/25 05:42
07/08/25 05:42
Estimated Creat Clear 36 ml/min 07/08/25 05:42
Lactic Acid 1.3 mmol/L (0.7-2.0) 07/07/25 03:23
Total Bilirubin 0.3 mg/dl (0.2-1.3) 07/08/25 05:42
AST 24 U/L (14-36) 07/08/25 05:42
ALT 37 U/L (0-35) H 07/08/25 05:42
Alkaline Phosphatase 90 U/L (38-126) 07/08/25 05:42
Most recent labs reviewed.
Micro Results:
07/05/25 18:04 Blood Culture - Preliminary
Blood/Venous Escherichia coli
Gram Stain - Preliminary
07/07/25 07:49 Blood Culture - Preliminary
Blood/Venous No Growth in 24 hours- Final report to follow
07/08/25 00:27 Urine Culture - Pending
Urine
07/05/25 18:23 Urine Culture - Final
Urine
Procedure Result Verified
Blood Culture Preliminary 07/08/25-0831
Positive for Escherichia coli.
Performed by [employer] PCR methodology.
Organism 1 Escherichia coli
1. Escherichia coli
M.I.C. RX
--------- ---
Amoxicillin/Potas. Clavulanate <=8/4 S
Ampicillin >16 R
Ampicillin/Sulbactam >16/8 R
Aztreonam <=4 S
Cefazolin <=2 S
Ertapenem <=0.5 S
Ciprofloxacin <=0.25 S
Gentamicin <=2 S
Meropenem <=1 S
Piperacillin/Tazobactam <=8 S
Tetracycline <=4 S
Tobramycin <=2 S
Trimethoprim/Sulfamethoxazole >2/38 R
07/05/25 CT a/p: SEVERE ACUTE RIGHT PYELONEPHRITIS. 2.5 mm partially obstructing calculus in the distal right ureter. SEVERE ACUTE CYSTITIS.
[2025-07-08 11:09] VITALS: BP 149/65
[2025-07-08] MEDS: STERILE WATER FOR INJECTION 20 ML IV (11:26)
[2025-07-08] MEDS: ROCEPHIN 2000 MG IV (11:26)
[2025-07-08 11:30] VITALS: BP 149/65
--- NOTE | 2025-07-08 13:45 | W.PN.URO.CBU ---
Today's Communication / Plan
-
- Continue antibiotic course, recommend total 10 days for septic complicated UTI
- Reviewed symptoms of indwelling ureteral stent with frequency, intermittent hematuria and some flank pain
Follow up with Dr. Dubose to address stone as outpatient
Urology will sign off - please call with questions
Assessment / Plan
-
79F with rt ureteral stone with hypotension, sepsis
s/p ureteral stent 07/05
E coli bacteremia
- Continue antibiotic course, recommend total 10 days for septic complicated UTI
- Reviewed symptoms of indwelling ureteral stent with frequency, intermittent hematuria and some flank pain
Follow up with Dr. Dubose to address stone as outpatient
Urology will sign off - please call with questions
Diagnosis
-
Date of Service: July 08, 2025
-
Patient Diagnosis:
Post Op Day:
Patient Diagnosis:urosepsis
hypotension due to 3mm distal rt uretral stone
E coli bacteremia
Post Op Day:
Subjective
-
No new sx
Some tolerable stent colic
Objective
-
Vital Signs
Temp Pulse Resp BP Pulse Ox
98.7 F 61 16 149/65 96
07/08/25 11:30 07/08/25 11:30 07/08/25 11:30 07/08/25 11:30 07/08/25 11:30
Intake and Output
07/07/25 07/08/25 07/09/25
06:59 06:59 06:59
Intake Total 2079 / 2160 1999 / 1999
Output Total 1675 / 1675 1300 / 1300
Balance 405 / 485 700 / 700
Intake:
Oral fluids 1440 / 1440 1680 / 1680
IV fluids (Total) 640 / 720 320 / 320
Nss 1,000 ml @ 80 mls/hr IV . 640 / 720 320 / 320
[id number] COUNT INCLUDES THE [facility] Rx#:[id number]
Output:
Urine, Bass 825 / 825
Urine, Voided 850 / 850 1300 / 1300
Other:
Number of approximated MODERATE 1
amounts of urine
Number of approximated LARGE 1
amounts of urine
Laboratory Results
07/08/25 05:42
07/08/25 05:42
Physical Exam
-
General - well developed, well nourished, no acute distress
Chest - clear bilaterally
[2025-07-08 15:30] VITALS: BP 149/73
== END 2025-07-08 17:04 | disposition home or self-care (01) | DRG 853 ==
LOC: 4 EAST ACU 22:21
PROVIDERS: Emergency Medicine; Nurse Practitioner Gerontology; Nurse Practitioner Primary Care; Registered Nurse; ADMITTING PHYSICIAN Internal Medicine; ATTENDING PHYSICIAN Internal Medicine; CONSULT PHYSICIAN Internal Medicine Critical Care Medicine; CONSULT PHYSICIAN Internal Medicine Infectious Disease; CONSULT PHYSICIAN Specialist; EMERGENCY PHYSICIAN Emergency Medicine
PROC: 0T768DZ Dilation of Right Ureter with Intraluminal Device, Via Natural or Artificial Opening Endoscopic (ICD-10-PCS; 2025-07-05)
DX: A41.9 Sepsis, unspecified organism (principal); R65.21 Severe sepsis with septic shock; N13.6 Pyonephrosis; E87.1 Hypo-osmolality and hyponatremia; N17.9 Acute kidney failure, unspecified; I95.89 Other hypotension; I10 Essential (primary) hypertension; E03.9 Hypothyroidism, unspecified; Z79.890 Hormone replacement therapy; E78.5 Hyperlipidemia, unspecified; Z88.5 Allergy status to narcotic agent; Z79.82 Long term (current) use of aspirin; E83.42 Hypomagnesemia; K58.9 Irritable bowel syndrome, unspecified; M81.0 Age-related osteoporosis without current pathological fracture; Z79.899 Other long term (current) drug therapy
CPT/HCPCS: 36415; 74018; 74176; 76000; 80048; 80053; 81003; 81015; 82962; 83605; 83735; 85025; 85027; 86803; 87040; 87077; 87086; 87154; 87186; 87205; 87340; 87389; 96361; 96365; 96375; 99291; C1769; C2617

== ENCOUNTER → 2025-07-16 13:00 | Outpatient (REF) | payer MEDICARE, BC, SELFPAY ==
[2025-07-16 16:20] LABS: Hematocrit 45.7 % (37.0-47.0); Hemoglobin 14.8 g/dL (12.0-16.0); Mean Corp Hgb Conc. 32.4 g/dL (33.0-37.0); Mean Corpuscular Volume 96.4 fL (81.0-99.0); Nucleated Red Blood Cells % 0 %; Platelet Count 434 10^3/uL (130-400); Red Cell Dist. Width 13.2 % (11.5-14.5)
[2025-07-16 16:49] LABS: ALT (SGPT) 37 U/L (0-35); AST (SGOT) 30 U/L (14-36); Albumin 4.1 g/dl (3.5-5.0); Alkaline Phosphatase 68 U/L (38-126); Blood Urea Nitrogen 23 mg/dl (7-17); Calcium 9.3 mg/dl (8.4-10.2); Carbon Dioxide 26 mmol/L (22-30); Chloride 102 mmol/L (98-107); Glucose 85 mg/dl (70-99); Potassium 5.4 mmol/L (3.5-5.1); Sodium 137 mmol/L (135-145); Total Protein 7.3 g/dl (6.3-8.2); eGFR 58.02
== END ==
LOC: HWLAB 13:00
DX: Z09 Encounter for follow-up examination after completed treatment for conditions other than malignant neoplasm (principal); A41.51 Sepsis due to Escherichia coli [E. coli]; N17.9 Acute kidney failure, unspecified; N10 Acute pyelonephritis; N20.0 Calculus of kidney; I10 Essential (primary) hypertension
CPT/HCPCS: 36415; 80053; 85025

== ENCOUNTER 2025-07-19 06:33 | Day surgery (SDC) | payer MEDICARE, BC, SELFPAY ==
[2025-07-19] VITALS (10 sets, daily range): BP systolic 85–132; BP diastolic 52–80; BMI 26.1
[2025-07-19] MEDS: NORMOSOL-R/PLASMALYTE-A 1000 IV (08:22)
[2025-07-19 08:39] LABS: Urine Character Clear (Clear)
[2025-07-19 11:11] LABS: Urine White Cell 16-20 /HPF (0-5)
== END 2025-07-19 12:00 | disposition home or self-care (01) ==
LOC: SDS 06:33
PROVIDERS: ATTENDING PHYSICIAN Specialist
DX: N20.0 Calculus of kidney (principal); I95.9 Hypotension, unspecified
CPT/HCPCS: 52310; 74018; 76000; 81003; 81015; 87086; 93005; C1894; J1580

== ENCOUNTER → 2025-08-01 10:49 | Outpatient (REF) | payer MEDICARE, BC, SELFPAY ==
[2025-08-01 12:09] LABS: ALT (SGPT) 21 U/L (0-35); AST (SGOT) 22 U/L (14-36); Albumin 4.0 g/dl (3.5-5.0); Alkaline Phosphatase 54 U/L (38-126); Blood Urea Nitrogen 22 mg/dl (7-17); Calcium 8.8 mg/dl (8.4-10.2); Carbon Dioxide 33 mmol/L (22-30); Chloride 102 mmol/L (98-107); Glucose 98 mg/dl (70-99); Potassium 3.7 mmol/L (3.5-5.1); Sodium 139 mmol/L (135-145); Total Protein 6.9 g/dl (6.3-8.2); eGFR 51.75
== END ==
LOC: REG 10:49
PROVIDERS: ATTENDING PHYSICIAN Specialist
DX: I10 Essential (primary) hypertension (principal); E87.5 Hyperkalemia; N17.9 Acute kidney failure, unspecified
CPT/HCPCS: 36415; 80053